=== PATIENT | male | born 1950 | race Caucasian/White ===

== ENCOUNTER → 2019-07-26 10:13 | Outpatient (CLI) | payer MEDICARE, OTHER, SELFPAY ==
--- NOTE | 2019-07-26 17:01 | NEURO ---
NCS and/or EMG Patient Report HPI: Patient is a 69-year-old male who presented with numbness and tingling in the first 3 digits of the right hand for many years which is progressively getting worse. Patient has history of diabetes but denying any neck injuries or neck surgeries. Numbness and tingling bothers him more at night than during the daytime. Patient is [id number]. Physical Exam: Decreased sensation to light touch is noted in right hand fingers. Mild weakness noted in the right thenar muscles and opponens muscles. Findings: 1. There is prolongation of distal latency of the right median sensory nerve response. 2. There is prolongation of the distal latency of the right median motor nerve response with severely reduced CMAP amplitudes of right median motor nerve response as well as decreased nerve conduction velocity of the right median motor nerve. 3. Normal needle examination of bilateral upper except decreased recruitment noted in right abductor pollicis brevis and first dorsal interossei muscles. Impression: 1. Findings are consistent with severe right median mononeuropathy at wrist due to carpal tunnel syndrome. 2. No electrodiagnostic evidence of right ulnar peripheral neuropathy. Recommendation: 1. Patient is recommended to wear both hand an elbow splints as much as possible. 2. Patient recommended to avoid repeated hand movements, heavy lifting or pushing pulling from right hand. 3. Patient recommended to have surgical release of right carpal tunnel syndrome if symptoms does not improve
== END ==
PROVIDERS: Family Provider Family Medicine; PCP Family Medicine; Referring Provider Family Medicine; Visit Provider Family Medicine
DX: G56.01 Carpal tunnel syndrome, right upper limb (principal); M79.601 Pain in right arm
CPT/HCPCS: 95886; 95908

== ENCOUNTER 2022-02-22 08:59 | Emergency (ER) | payer MEDICARE, OTHER, SELFPAY ==
[2022-02-22] VITALS (7 sets, daily range): BP systolic 130–168; BP diastolic 72–88; PULSE 51–68; RESP 12–19; TEMP 36.8; O2SAT 94–98; BMI 32.1
--- NOTE | 2022-02-22 09:09 | EKG12_ITS ---
Test Reason : CP Blood Pressure : / mmHG Vent. Rate : 062 BPM Atrial Rate : 062 BPM P-R Int : 114 ms QRS Dur : 076 ms QT Int : 416 ms P-R-T Axes : -24 -18 -08 degrees QTc Int : 422 ms Normal sinus rhythm Low voltage QRS Inferior infarct , age undetermined Poor R wave progression Abnormal ECG Confirmed by DARRIAN HOLLOWAY, ZACH ([id number]), editor farm journal DWAYNE PEÑA ([id number]) on 02/24/2022 8:53:56 AM Referred By: CAMACHO Confirmed By:ZACH COLMENARES MD
--- NOTE | 2022-02-22 09:09 | RAD_ITS ---
STUDY: X-RAY CHEST REASON FOR EXAM: Male, 71 years old. chest pain TECHNIQUE: Single AP portable view of the chest. COMPARISON: None. FINDINGS: The lungs are clear and expanded. There is no demonstrated pleural abnormality. Normal size heart. Normal mediastinum and shira. Normal visualized pulmonary arteries. Normal visualized aortic arch and descending thoracic aorta. Normal visualized thoracic spine. Normal visualized ribs, clavicles, and shoulders. There is no demonstrated abnormality of the visualized soft tissue structures of the upper abdomen. RAD/Chest 1 View (Portable) IMPRESSION: Normal x-ray examination of the chest. Electronically Signed: Venancio Callahan MD at 10:17 EDT ,
--- NOTE | 2022-02-22 09:10 | EDS_ITS ---
HPI History of Present Illness Chief Complaint: Chest Pain Informant: patient Narrative Narrative: 71-year-old male presenting to the emergency department for the evaluation of chest pain. Patient states that symptoms began at 5:00 this morning when he woke. He describes it as a sharp stabbing pain in the center of his chest. He notes that he is nauseous and has been vomiting. He denies any shortness of breath. He does note diaphoresis. He states that last year he had a stress test prior to a back surgery. He states that this was normal. He notes a history of diabetes hypertension high cholesterol. He is a former smoker. [facility] Medical History (Updated 02/22/22 @ 13:[address] Hema Lamar DO) Diverticulitis Essential hypertension Gout Hypercholesterolemia Nephrolithiasis Type 2 diabetes mellitus Home Medications ondansetron 4 mg disintegrating tablet 4 mg PO Q6H PRN PRN Nausea #15 tabs 02/22/22 [Rx Last Taken Unknown] Allergy/AdvReac Type Severity Reaction Status Date / Time metronidazole [From Flagyl] AdvReac Vomiting Verified 02/22/22 09:00 sulfamethoxazole AdvReac Vomiting Verified 02/22/22 09:00 [From Bactrim] trimethoprim [From Bactrim] AdvReac Vomiting Verified 02/22/22 09:00 Surgical History (Updated 02/22/22 @ 09:[address] Hema Lamar DO) H/O ileostomy Social History (Updated 02/22/22 @ 09:[address] Hema Lamar DO) current gender identity: male Smoking Status: Former smoker substance use type: does not use ROS ROS ED Constitutional Constitutional ED: Denies chills or weight loss Eyes Eyes: Denies change in vision or diplopia ENT ENT ED: Denies ear pain, rhinorrhea or sore throat Cardiovascular Cardiovascular: Reports chest pain; Denies orthopnea, palpitations or racing heartbeat Respiratory/Chest Respiratory/Chest: Denies cough, dyspnea or orthopnea Gastrointestinal Gastrointestinal: Reports nausea and vomiting; Denies abdominal pain or diarrhea Genitourinary Genitourinary ED: Denies dysuria, hematuria or urinary frequency Musculoskeletal Musculoskeletal: Denies arthralgias or myalgias Integumentary Denies abscess or rash Neurologic Neurologic: Denies headache(s) or weakness Psychiatric Psychiatric: Denies anxiety, depression, suicidal ideation or suicidal thoughts Endocrine Endocrinology: Denies polydipsia, polyphagia or polyuria Allergic/Immunologic Allergic/Immunologic ED: Denies mouth swelling, tongue swelling or urticaria EXAM Physical Exam Const Vital Signs: 02/22/22 09:01 02/22/22 09:17 02/22/22 09:38 Temperature 98.3 F Temperature Source Oral Pulse Rate 64 64 64 Respiratory Rate 18 Blood Pressure 168/87 H 155/88 H 130/76 H Blood Pressure Mean 114 Pulse Ox 98 Oxygen Delivery Method Room Air 02/22/22 10:51 02/22/22 12:18 Temperature Temperature Source Pulse Rate 52 L 63 Respiratory Rate 12 19 H Blood Pressure 137/72 H 155/77 H Blood Pressure Mean 93 103 Pulse Ox 94 94 Oxygen Delivery Method Room Air Room Air Heart Score History: Moderately Suspicious ECG: Normal Age: >/= 65 years Risk Factors: >/= 3 Risk Factors or History of CAD Score: 5 MDM MDM MDM Narrative Medical decision making narrative: CBC normal. D-dimer age corrected is normal range. Initial troponin 81 with the delta troponin at 68. liver lipase within normal limits. My interpretation of the chest x-ray is no acute process. Patient received nitroglycerin which did not change his symptoms. He received Zofran and then morphine. He continued to have pain and vomiting so therefore Zofran and more morphine were given. CT of the abdomen pelvis was obtained which is negative for acute. Patient is actually resting more comfortably now. He is remained in a sinus rhythm. I will write for some Zofran at home return if worsening or concerns. If he continues to have symptoms 24 hours she should seek a repeat examination Lab Data Attestation: I reviewed the patient's lab results. Labs: Laboratory Results - last 24 hr 02/22/22 02/22/22 02/22/22 09:15 09:15 09:15 WBC 9.5 RBC 5.06 Hgb 15.3 Hct 46.0 MCV 90.9 MCH 30.2 MCHC 33.3 RDW Std Deviation 46.4 H RDW Coeff of Manuel 14.1 Plt Count 199 MPV 8.6 Immature Gran % (Auto) 0.500 Neut % (Auto) 75.4 H Lymph % (Auto) 15.8 L Mckenzie % (Auto) 6.0 Eos % (Auto) 1.9 Baso % (Auto) 0.4 Absolute Neuts (auto) 7.2 Absolute Lymphs (auto) 1.51 Nucleated RBC % 0 D-Dimer Quant (PE/DVT) 0.64 H* Sodium 139 Potassium 4.2 Chloride 107 Carbon Dioxide 26.0 Anion Gap 6 BUN 24 H Creatinine 1.60 H Estim Creat Clear Calc 39.78 Est GFR (MDRD) Af Amer 55 L Est GFR (MDRD) Non-Af 45 L BUN/Creatinine Ratio 15.0 Glucose 156 H Calcium 9.8 Total Bilirubin Direct Bilirubin AST ALT Alkaline Phosphatase Troponin I High Sens 81 H Total Protein Albumin Globulin Lipase 02/22/22 02/22/22 02/22/22 09:15 09:15 11:15 WBC RBC Hgb Hct MCV MCH MCHC RDW Std Deviation RDW Coeff of Manuel Plt Count MPV Immature Gran % (Auto) Neut % (Auto) Lymph % (Auto) Mckenzie % (Auto) Eos % (Auto) Baso % (Auto) Absolute Neuts (auto) Absolute Lymphs (auto) Nucleated RBC % D-Dimer Quant (PE/DVT) Sodium Potassium Chloride Carbon Dioxide Anion Gap BUN Creatinine Estim Creat Clear Calc Est GFR (MDRD) Af Amer Est GFR (MDRD) Non-Af BUN/Creatinine Ratio Glucose Calcium Total Bilirubin 0.40 Direct Bilirubin 0.13 AST 13 L ALT 21 Alkaline Phosphatase 161 H Troponin I High Sens 68 Total Protein 7.3 Albumin 4.0 Globulin 3.3 Lipase 122 Radiography Diagnostic Testing: Clinical Impression(s) from Imaging Studies Chest X-Ray 02/22/22 09:09 IMPRESSION: Normal x-ray examination of the chest. Electronically Signed: Venancio Callahan MD at 10:17 EDT , Abdomen/Pelvis CT 02/22/22 11:51 IMPRESSION: No acute abnormality. Electronically Signed: Venancio Callahan MD at 13:16 EDT Reading Location ID and State: [id number] / [place] Tel , Service support , EKG Initial EKG: Attestation: I personally reviewed and interpreted this EKG as follows: Comments: Normal sinus rhythm with a ventricular rate of 62 bpm. Discharge Plan Triage Chief Complaint: Chest Pain ED Provider: Hema Lamar Dx/Rx/DC Orders Clinical Impression: Chest pain, Vomiting Instructions: Self-Care for Vomiting and Diarrhea, ED Chest Pain, Uncertain Cause Prescriptions: New ondansetron [ondansetron] 4 mg tablet,disintegrating 4 mg PO Q6H PRN PRN (Reason: Nausea) Qty: 15 0RF Primary Care Provider: Peyman Dial Referrals: Peyman Dial MD [Primary Care Provider] - 1-2 Days if not improving Disposition Disposition: Home, Self Care
[2022-02-22] MEDS: Nitroglycerin SL (ED/IMG/CATH) 0.4 MG TABLET SL ×2 (09:17→09:38)
[2022-02-22] MEDS: Ondansetron 4 MG/2 ML Vial IV ×2 (09:18→10:14)
[2022-02-22 09:31] LABS: Absolute Lymphocyte Count 1.51 X10^3/uL (0.83-4.51); Absolute Neutrophil Count 7.2 X10^3/uL (2.0-7.7); Basophil# 0.04 X10^3/uL; Basophil% 0.4 % (0-1); Eosinophil# 0.18 X10^3/uL; Eosinophils% 1.9 % (0-5); Hemoglobin 15.3 g/dL (13.0-16.5); Lymphocyte # 1.51 X10^3/ul (0.83-4.51); Lymphocyte % 15.8 % (19-41); Mean Corp Hgb Conc 33.3 g/dL (32-36); Mean Corpuscular Hgb 30.2 pg (27.0-32.0); Mean Corpuscular Volume 90.9 fL (80-94); Mean Platelet Vol. 8.6 fl (6.2-12.0); Monocyte# 0.57 X10^3/uL; NRBC Flagged by Analyzer 0 % (0-5); Neutrophil # 7.19 X10^3/uL (2.7-7.7); Neutrophil % 75.4 % (47-70); Platelet Count 199 K/mm3 (150-450); RBC Distribution Width CV 14.1 % (11.6-14.6); RBC Distribution Width SD 46.4 fl (35.1-43.9); Red Blood Count 5.06 M/mm3 (4.6-6.2); White Blood Count 9.5 K/mm3 (4.4-11.0)
[2022-02-22 09:46] LABS: D-Dimer Quantitative (DVT/PE) 0.64 FEU/ug/m (0.27-0.49)
[2022-02-22 09:49] LABS: Anion Gap 6 (5-15); BUN 24 mg/dL (7-18); Calcium,Total 9.8 mg/dL (8.5-10.1); Chloride 107 mmol/L (98-107); EST Glomerular Filtration Rate 45 mL/min (>60); Est Glom Filt Rate - Afr Amer 55 mL/min (>60); Estimated Creatinine Clearance 39.78 ml/min; Glucose 156 mg/dL (74-106); Potassium 4.2 mmol/L (3.5-5.1); Sodium Level 139 mmol/L (136-145); Troponin-I HS (w/2H Reflex) 81 pg/mL (3.0-78.0)
[2022-02-22] MEDS: Morphine 4 MG/ML Syringe IV ×2 (10:14→12:00)
[2022-02-22 10:29] LABS: Lipase 122 U/L (73-393)
[2022-02-22 10:30] LABS: AST(SGOT) 13 U/L (15-37); Alanine Aminotransfer ALT/SGPT 21 U/L (16-61); Alkaline Phosphatase 161 U/L (45-117); Bilirubin, Direct 0.13 mg/dL (0.00-0.30); Globulin 3.3 g/dL (2.2-4.2); Protein, Total 7.3 g/dL (6.4-8.2)
[2022-02-22 11:28] LABS: Reflex Troponin-HS? (from REC) Y
[2022-02-22 11:50] LABS: Troponin-I HS 68 pg/mL (3.0-78.0)
--- NOTE | 2022-02-22 11:51 | CT_ITS ---
STUDY: CT ABDOMEN AND PELVIS WITH CONTRAST REASON FOR EXAM: Male, 71 years old. abdominal pain vomiting RADIATION DOSAGE (If Supplied By Facility): CTDIvol = ( 21.36 ) mGy, DLP = ( 1185.20 ) mGycm TECHNIQUE: Transaxial images were obtained from the dome of the diaphragm to the symphysis pubis without oral contrast. IV 100mL Isovue-300 was administered. Sagittal and coronal images were reconstructed. Individualized dose optimization techniques were used for this CT. COMPARISON: None. FINDINGS: The visualized lung bases are unremarkable. The visualized portions of the heart are within normal limits. Normal liver. Normal gallbladder and extrahepatic biliary system. Normal spleen. Normal pancreas. Normal bilateral adrenal glands. Normal right kidney. Normal left kidney. Normal visualized stomach. Diverticulum of the second portion of duodenum. There are multiple colonic diverticula consistent with diverticulosis. Suture line in the mid sigmoid colon. There is non-visualization of the appendix. Normal abdominal aorta. Normal inferior vena cava. Normal retroperitoneum. Normal urinary bladder. Normal abdominal wall. Normal osseous structures. CT/Abdomen/Pelvis W IV Cont ONLY IMPRESSION: No acute abnormality. Electronically Signed: Venancio aCllahan MD at 13:16 EDT ,
== END 2022-02-22 13:52 | disposition home or self-care (01) ==
PROVIDERS: Emergency Provider Emergency Medicine; PCP Family Medicine; Visit Provider Emergency Medicine
DX: R07.9 Chest pain, unspecified (principal); E11.9 Type 2 diabetes mellitus without complications; R11.2 Nausea with vomiting, unspecified; Z87.891 Personal history of nicotine dependence; E78.00 Pure hypercholesterolemia, unspecified; I10 Essential (primary) hypertension; M10.9 Gout, unspecified; Z87.442 Personal history of urinary calculi
CPT/HCPCS: 71045; 74177; 80048; 80076; 83690; 84484; 85025; 85379; 93005; 96374; 96375; 96376; 99285; Q9967; A4216; J2405

== ENCOUNTER 2023-04-07 10:01 | Emergency (ER) | payer MEDICARE, OTHER, SELFPAY ==
[2023-04-07 10:02] VITALS: BP 123/66; PULSE 85; RESP 14; TEMP 36.4; O2SAT 98; BMI 31.6
--- NOTE | 2023-04-07 10:21 | RAD_ITS ---
STUDY: X-RAY CHEST REASON FOR EXAM: Male, 72 years old. Cough and shortness of breath. Left-sided rib pain for one week. TECHNIQUE: PA and lateral views of the chest. COMPARISON: Comparison is made with prior study dated February 22, 2022. FINDINGS: Small left pleural effusion with left basilar atelectasis and/or infiltrate. Linear density in the left midlung suggestive of linear atelectasis. There is no demonstrated pleural abnormality. Normal size heart. Normal mediastinum and shira. Normal visualized pulmonary arteries. There is atherosclerotic tortuosity of the aortic arch and descending thoracic aorta. There are diffuse degenerative changes of the visualized thoracic spine. Normal visualized ribs, clavicles, and shoulders. There is no demonstrated abnormality of the visualized soft tissue structures of the upper abdomen. RAD/Chest PA and Lateral IMPRESSION: Small left pleural effusion with left basilar infiltration and/or atelectasis. Increased linear density in the mid left lung. Electronically Signed: Estuardo Morgan MD at 11:13 EDT ,
--- NOTE | 2023-04-07 10:22 | ED.VIS.CHEST ---
HPI History of Present Illness Chief Complaint: Chest Other Informant: patient and spouse/S.O. Narrative Narrative: 72-year-old presenting to the emergency department with chief complaint of left rib pain. Patient states that on Monday he began to have a dull ache in the left rib. He associates this with a cough that is productive of sputum particularly at night. He states that he had colonoscopy on Monday without any difficulty. This morning he coughed and after coughing for a bit he spit up some bright red blood with the phlegm. He denies any recent travel or history of pulmonary embolism. He is not on any blood thinners. He notes that he does feel short of breath particularly with exertion. He denies fevers. He does note some sinus drainage. No known trauma. No rashes. No known malignancy. PFSH PFSH Medical History Diverticulitis Essential hypertension Gout Hypercholesterolemia Nephrolithiasis Type 2 diabetes mellitus Home Medications ondansetron 4 mg disintegrating tablet 4 mg PO Q6H PRN PRN Nausea #15 tabs 02/22/22 [Rx Last Taken Unknown] Allergy/AdvReac Type Severity Reaction Status Date / Time metronidazole [From Flagyl] AdvReac Vomiting Verified 04/07/23 10:02 sulfamethoxazole AdvReac Vomiting Verified 04/07/23 10:02 [From Bactrim] trimethoprim [From Bactrim] AdvReac Vomiting Verified 04/07/23 10:02 Surgical History H/O ileostomy Social History Smoking Status: Former smoker substance use type: does not use ROS ROS ED Constitutional Constitutional ED: Denies chills or weight loss Eyes Eyes: Denies change in vision or diplopia ENT ENT ED: Denies ear pain, rhinorrhea or sore throat Cardiovascular Cardiovascular: Reports chest pain; Denies orthopnea, palpitations or racing heartbeat Respiratory/Chest Respiratory/Chest: Reports cough, dyspnea, sputum and other Details: See HPI ; Denies orthopnea Gastrointestinal Gastrointestinal: Denies abdominal pain, constipation, diarrhea, nausea or vomiting Genitourinary Genitourinary ED: Denies dysuria, hematuria or urinary frequency Musculoskeletal Musculoskeletal: Denies arthralgias or myalgias Integumentary Denies abscess or rash Neurologic Neurologic: Denies headache(s) or weakness Psychiatric Psychiatric: Denies anxiety, depression, suicidal ideation or suicidal thoughts Endocrine Endocrinology: Denies polydipsia, polyphagia or polyuria Allergic/Immunologic Allergic/Immunologic ED: Denies mouth swelling, tongue swelling or urticaria EXAM Physical Exam Const Vital Signs: 04/07/23 10:02 04/07/23 10:19 Temperature 97.6 F L Temperature Source Temporal Pulse Rate 85 Respiratory Rate 14 Respiratory Effort Normal Blood Pressure 123/66 H Blood Pressure Mean 85 Pulse Ox 98 Oxygen Delivery Method Room Air Positive well nourished and well developed General Appearance ED: well developed HEENT Reports normocephalic, head/scalp atraumatic and moist mucous membranes Eyes PERRL and EOMs intact bilaterally Neck no lymphadenopathy, supple and no JVD Chest Wall inspection of chest normal and palpation of chest normal Chest Narrative: No visible rashes of the chest wall. No tenderness to palpation. Resp normal respiratory effort and clear to auscultation bilaterally Cardio regular rate, regular rhythm and no murmurs GI normal to inspection, nondistended, normoactive bowel sounds and non-tender Palpation: soft Back/Spine no CVA tenderness and normal ROM Extremity normal to inspection General Extremety ED: Yes edema General Extremity: edema bilateral (1+) Neuro oriented x3 and CN's II-XII intact bilaterally Sensorium / Orientation: alert Motor Exam: strength 5/5 throughout Psych mental status grossly normal Mood & Affect: Negative for depressed or tearful Skin no rashes or lesions noted and no wounds MDM MDM MDM Narrative Medical decision making narrative: Basic blood work was obtained. White count 8.5 hemoglobin 13.1. Patient's creatinine is 2.49. He does have a history of chronic kidney disease and sees nephrology. Troponin is 81 which it appears that he has had elevated troponins in the past. Beta natruretic peptide is 121 which is not significantly elevated in light of his chronic kidney disease. Interpretation of his chest x-ray is left pleural effusion with atelectatic changes in the left lower lung. I do not feel strongly that the patient has pneumonia. He has a normal white count and no fever. Clinically he appears well not requiring any oxygenation and breathing normally. He does have lower extremity edema and is supposed to be wearing compression stockings but is not wearing them. I spoke with his PCP who notes that he recently saw nephrology and had his 20 mg of Lasix decreased to every other day. The patient does confirm this. He is supposed to take his Lasix today but did not do so as he was coming to the hospital. At this point I do not think that the patient needs to be admitted to the hospital. He underwent a normal pharmacologic stress test approximately 2 years ago. I do not think this represents ACS. We are can have him take his Lasix daily but have him have a early follow-up next week to see where he is at. In the interim he was given return instructions such as increased blood in the sputum or worsening breathing. Him and his note understanding of the plan. History & Record Review Discussion w/independent historian: Patient, Family and Other (PCP) Lab Data Attestation: I reviewed the patient's lab results. Labs: Laboratory Results - last 24 hr 04/07/23 04/07/23 10:30 11:09 WBC 8.5 RBC 4.48 L Hgb 13.1 Hct 39.7 L MCV 88.6 MCH 29.2 MCHC 33.0 RDW Std Deviation 43.4 RDW Coeff of Manuel 13.3 Plt Count 232 MPV 9.0 Immature Gran % (Auto) 1.200 H Neut % (Auto) 71.2 H Lymph % (Auto) 16.9 L [place] % (Auto) 7.5 Eos % (Auto) 2.5 Baso % (Auto) 0.7 Absolute Neuts (auto) 6.1 Absolute Lymphs (auto) 1.44 Nucleated RBC % 0 PT 14.6 INR 1.1 APTT 22.3 L Sodium 138 Potassium 3.6 Chloride 109 H Carbon Dioxide 22.0 Anion Gap 7 BUN 28 H Creatinine 2.49 H Estim Creat Clear Calc 26.03 Est GFR (MDRD) Af Amer 33 L Est GFR (MDRD) Non-Af 27 L BUN/Creatinine Ratio 11.2 Glucose 213 H Calcium 9.1 Troponin I High Sens 81 H B-Natriuretic Peptide 121.7 H Radiography Diagnostic Testing: Clinical Impression(s) from Imaging Studies Chest X-Ray 04/07/23 10:21 IMPRESSION: Small left pleural effusion with left basilar infiltration and/or atelectasis. Increased linear density in the mid left lung. Electronically Signed: Estuardo Morgan MD at 11:13 EDT , EKG Initial EKG: Attestation: I personally reviewed and interpreted this EKG as follows: Interpretation: Sinus Rhythm Comments: Normal sinus rhythm ventricular rate of 79 bpm. No acute injury pattern noted Management Discussion w/another healthcare provider: PCP Discharge Plan Triage Chief Complaint: Chest Other Other Complaint: Shortness of Breath ED Provider: Hema Lamar Dx/Rx/DC Orders Clinical Impression: Cough with hemoptysis, CKD (chronic kidney disease), Pleural effusion, Pleurisy with effusion, Volume overload Instructions: ED Pleural Effusion, ED Pleurisy Prescriptions: No Action ondansetron [ondansetron] 4 mg tablet,disintegrating 4 mg PO Q6H PRN PRN (Reason: Nausea) Qty: 15 0RF Primary Care Provider: Peyman Dial Referrals: Peyman Dial MD [Primary Care Provider] - As soon as possible (I would recommend calling today to obtain early follow-up next week. In the interim if you are feeling worse or if any concerning changes in your health please return to emergency) Activity Restrictions/Additional Instructions: Today you are diagnosed with a pleural effusion which is most likely the source of your cough and your rib pain. The etiology of the pleural effusion can be many different things but at this point it looks like you could have volume overload from decreasing your Lasix. Please wear your compression stockings and start taking your Lasix every day. I spoke with your primary care doctor today and asked that you call them to arrange early follow-up next week. Please return if any concerns. Disposition Disposition: Home, Self Care
[2023-04-07 10:47] LABS: Absolute Lymphocyte Count 1.44 X10^3/uL (0.83-4.51); Absolute Neutrophil Count 6.1 X10^3/uL (2.0-7.7); Basophil# 0.06 X10^3/uL; Basophil% 0.7 % (0-1); Eosinophil# 0.21 X10^3/uL; Eosinophils% 2.5 % (0-5); Hematocrit 39.7 % (40-54); Hemoglobin 13.1 g/dL (13.0-16.5); Lymphocyte # 1.44 X10^3/ul (0.83-4.51); Lymphocyte % 16.9 % (19-41); Mean Corpuscular Hgb 29.2 pg (27.0-32.0); Mean Corpuscular Volume 88.6 fL (80-94); Monocyte# 0.64 X10^3/uL; Monocyte% 7.5 % (0-10); NRBC Flagged by Analyzer 0 % (0-5); Neutrophil # 6.05 X10^3/uL (2.7-7.7); Neutrophil % 71.2 % (47-70); Platelet Count 232 K/mm3 (150-450); RBC Distribution Width CV 13.3 % (11.6-14.6); RBC Distribution Width SD 43.4 fl (35.1-43.9); Red Blood Count 4.48 M/mm3 (4.6-6.2); White Blood Count 8.5 K/mm3 (4.4-11.0)
--- NOTE | 2023-04-07 10:47 | EKG12_ITS ---
Test Reason : sob Blood Pressure : / mmHG Vent. Rate : 079 BPM Atrial Rate : 079 BPM P-R Int : 154 ms QRS Dur : 082 ms QT Int : 396 ms P-R-T Axes : 016 -14 -21 degrees QTc Int : 454 ms Normal sinus rhythm Inferior infarct (cited on or before 22-FEB-2022) Possible Anterior infarct , age undetermined Abnormal ECG Confirmed by BHAVANI CARMONA ([id number]), greeting card editor PATRICIA MIRELES ([id number]) on 04/10/2023 2:12:19 PM Referred By: Confirmed By:BHAVANI CARMONA
[2023-04-07 10:52] LABS: Anion Gap 7 (5-15); BUN 28 mg/dL (7-18); BUN/Creat Ratio 11.2 RATIO (10-20); Calcium,Total 9.1 mg/dL (8.5-10.1); Chloride 109 mmol/L (98-107); Creatinine, Serum 2.49 mg/dL (0.70-1.30); EST Glomerular Filtration Rate 27 mL/min (>60); Est Glom Filt Rate - Afr Amer 33 mL/min (>60); Estimated Creatinine Clearance 26.03 ml/min; Glucose 213 mg/dL (74-106); Potassium 3.6 mmol/L (3.5-5.1); Sodium Level 138 mmol/L (136-145)
[2023-04-07 11:27] LABS: International Normalized Ratio 1.1; Prothrombin Time (Protime)PT. 14.6 SECONDS (11.7-14.9)
[2023-04-07 11:28] LABS: Troponin-I HS 81 pg/mL (3.0-78.0)
[2023-04-07 11:29] LABS: BNP,B-Type NATRIURETIC PEPTIDE 121.7 pg/mL (0-100)
[2023-04-07 12:01] LABS: Partial Thromboplast Time 22.3 Seconds (24.1-36.2)
[2023-04-07] MEDS: Furosemide 40 MG/4 ML Vial IV (13:03)
== END 2023-04-07 13:09 | disposition home or self-care (01) ==
PROVIDERS: Emergency Provider Emergency Medicine; PCP Family Medicine; Visit Provider Emergency Medicine
DX: J90 Pleural effusion, not elsewhere classified (principal); E11.22 Type 2 diabetes mellitus with diabetic chronic kidney disease; N18.9 Chronic kidney disease, unspecified; Z87.891 Personal history of nicotine dependence; R04.2 Hemoptysis; E78.00 Pure hypercholesterolemia, unspecified; I12.9 Hypertensive chronic kidney disease with stage 1 through stage 4 chronic kidney disease, or unspecified chronic kidney disease
CPT/HCPCS: 71046; 80048; 83880; 84484; 85025; 85610; 85730; 93005; 96374; 99283; A4216; J1940

== ENCOUNTER 2023-04-10 16:18 | Observation (INO) | payer MEDICARE, OTHER, SELFPAY ==
[2023-04-10] VITALS (26 sets, daily range): BP systolic 134–170; BP diastolic 74–89; PULSE 66–87; RESP 14–25; TEMP 36.4–37.2; O2SAT 95–98; BMI 31.0
--- NOTE | 2023-04-10 16:53 | EX.ED.DYSGE1 ---
HPI History of Present Illness Chief Complaint: Abn Labs [facility] Medical History Diverticulitis Essential hypertension Gout Hypercholesterolemia Nephrolithiasis Type 2 diabetes mellitus Home Medications allopurinol 100 mg tablet 100 mg PO DAILY 04/10/23 [History Last Taken Unknown] felodipine 10 mg tablet,extended release 24 hr 10 mg PO DAILY 04/10/23 [History Last Taken Unknown] fluticasone furoate 50 mcg/actuation blister powder for inhalation inhalation 04/10/23 [History Last Taken Unknown] furosemide 20 mg tablet 20 mg PO .EVERY OTHER DAY 04/10/23 [History Last Taken Unknown] multivitamin (Daily Multi-Vitamin tablet) 1 tab PO DAILY 04/10/23 [History Last Taken Unknown] tamsulosin 0.4 mg capsule 0.4 mg PO DAILY 04/10/23 [History Last Taken Unknown] valsartan 80 mg tablet 80 mg PO DAILY 04/10/23 [History Last Taken Unknown] Allergy/AdvReac Type Severity Reaction Status Date / Time aspirin AdvReac Vomiting Verified 04/10/23 16:20 metronidazole [From Flagyl] AdvReac Vomiting Verified 04/10/23 16:20 sulfamethoxazole AdvReac Vomiting Verified 04/10/23 16:20 [From Bactrim] trimethoprim [From Bactrim] AdvReac Vomiting Verified 04/10/23 16:20 Surgical History H/O ileostomy Social History Smoking Status: Former smoker substance use type: does not use EXAM Physical Exam Const Vital Signs: 04/10/23 16:20 04/10/23 16:47 04/10/23 18:18 Temperature 97.6 F L 98.1 F Temperature Source Temporal Temporal Pulse Rate 87 69 Respiratory Rate 18 25 H Respiratory Effort Normal Respiratory Pattern Normal Blood Pressure 147/81 H 138/74 H Blood Pressure Mean 103 95 Pulse Ox 98 97 Oxygen Delivery Method Room Air Room Air 04/10/23 19:23 04/10/23 19:30 04/10/23 19:40 Temperature Temperature Source Pulse Rate 67 68 68 Respiratory Rate 25 H 24 H 25 H Respiratory Effort Respiratory Pattern Blood Pressure 141/79 H Blood Pressure Mean 98 Pulse Ox 97 96 97 Oxygen Delivery Method 04/10/23 19:45 04/10/23 19:50 04/10/23 20:00 Temperature Temperature Source Pulse Rate 68 71 73 Respiratory Rate 20 H 21 H 20 H Respiratory Effort Respiratory Pattern Blood Pressure 134/82 H 135/79 H Blood Pressure Mean 98 96 Pulse Ox 95 95 96 Oxygen Delivery Method 04/10/23 20:10 04/10/23 20:15 04/10/23 20:20 Temperature Temperature Source Pulse Rate 70 66 68 Respiratory Rate 20 H 25 H 24 H Respiratory Effort Respiratory Pattern Blood Pressure 142/83 H Blood Pressure Mean 101 Pulse Ox 97 95 96 Oxygen Delivery Method Room Air 04/10/23 20:30 04/10/23 20:40 04/10/23 20:45 Temperature Temperature Source Pulse Rate 72 71 Respiratory Rate 18 23 H Respiratory Effort Respiratory Pattern Blood Pressure 145/89 H 170/79 H Blood Pressure Mean 105 103 Pulse Ox 97 96 Oxygen Delivery Method 04/10/23 20:50 04/10/23 21:00 04/10/23 21:10 Temperature Temperature Source Pulse Rate 71 70 72 Respiratory Rate 18 14 23 H Respiratory Effort Respiratory Pattern Blood Pressure 141/80 H Blood Pressure Mean 97 Pulse Ox 98 98 Oxygen Delivery Method 04/10/23 21:15 04/10/23 21:20 04/10/23 21:30 Temperature Temperature Source Pulse Rate 70 71 Respiratory Rate 22 H 16 Respiratory Effort Respiratory Pattern Blood Pressure 141/82 H 143/87 H Blood Pressure Mean 99 104 Pulse Ox 98 98 Oxygen Delivery Method 04/10/23 21:30 04/10/23 21:42 04/10/23 21:45 Temperature Temperature Source Pulse Rate Respiratory Rate 18 21 H Respiratory Effort Respiratory Pattern Blood Pressure 143/87 H 141/81 H Blood Pressure Mean 104 98 Pulse Ox 96 98 98 Oxygen Delivery Method 04/10/23 21:50 04/10/23 22:00 Temperature Temperature Source Pulse Rate 86 Respiratory Rate 16 Respiratory Effort Respiratory Pattern Blood Pressure 140/79 H Blood Pressure Mean 96 Pulse Ox 96 97 Oxygen Delivery Method Room Air MDM MDM MDM Narrative Medical decision making narrative: HISTORY OF PRESENT ILLNESS: 72-year-old male here with hemoptysis and occasional shortness of breath told to come in secondary to elevated D-dimer by his primary doctor. He does note shortness of breath, dyspnea exertion and hemoptysis over the last week. Notes recent colonoscopy. Denies family or personal history of blood clots. Denies any chemotherapy treatment. Denies taking estrogen. He denies any unilateral leg swelling. Denies any chest pain at this time. REVIEW OF SYSTEMS: Pertinent positives: Shortness of breath Pertinent negatives: Chest pain, unilateral leg swelling. PHYSICAL EXAM: Nursing triage notes reviewed, Vital signs reviewed Constitutional: please see mdm HENT: MMM Eyes: Pupils equal round and reactive to light, Extraocular muscles intact Neck: No stridor, no JVD, full neck ROM Lungs: Clear to auscultation, No wheezing or rales. No increased work of breathing, no conversational dyspnea, no accessory muscle use, no nasal flaring. No respiratory distress noted Heart: Regular rate and rhythm, No murmurs, No rubs and No gallops, 2+ distal pulses (radial, femoral, posterior tibial) in all extremities Abdomen: Soft, there is no tenderness, rigidity, rebound or guarding, no obvious peritoneal signs, no palpable pulsatile abdominal masses, no auscultated abdominal bruit : No CVAT Extremities: No edema Neuro: No focal neurological deficits, cranial nerves II through XII intact, 5/5 strength in all extremities. Intact sensation to light touch in all extremities, 2+ reflexes bilateral patella tendons. Normal gait. No ataxia. Skin: No rash or lesions noted MEDICAL DECISION MAKING: Chief Complaint: Shortness of breath External records reviewed: Last ED evaluation on 04/07/2023 for left rib pain. Notes coughing up bright red blood. Prior imaging studies reviewed, chest x-ray from 04/07/2023 shows small left pleural effusion, left basilar infiltration Factors affecting care: Type 2 diabetes hypertension, gout, hyperlipidemia, nephrolithiasis Social determinants of health: none History obtained from others: The patient's Consults: none ALL IMAGES (IF OBTAINED) HAVE BEEN PERSONALLY REVIEWED AND INTERPRETED BY MYSELF. EKG with normal sinus rhythm, normal axis, normal intervals, no STEMI [facility] Narrative: Patient was hemodynamically stable, afebrile, nontoxic-appearing. Exam with no focal cardiopulmonary abnormalities. I considered the following differential diagnosis: Pneumonia, lung mass, PE, bronchitis, vascular malformation of the lung I obtained an EKG, troponin rule out myocardial ischemia. EKG showed normal sinus rhythm, left axis deviation, no STEMI. Troponin was negative. The patient's BNP was only mildly elevated this was not consistent with CHF. Chest x-ray showed no evidence of pneumonia or pulmonary edema. Given patient's elevated D-dimer and hemoptysis I was concerned about PE. I did offer the patient admission to undergo VQ scan also offered him a CTA of the chest. The data regarding contrast-induced nephropathy is not definitive. There is even some literature to suggest contrast-induced nephropathy is not a significant clinical entity. I discussed this and agreed with the patient. I offered a CTA to definitively rule out PE. I obtained labs which showed evidence of CKD with a GFR of 29. Patient was still comfortable getting a CT scan new the risk of contrast-induced nephropathy and potentially worsening renal function. He was hydrated with IV fluids prior to and after image. CTA of the chest showed evidence of pulmonary embolism. Per radiology report there is also evidence of right heart strain. Patient's EKG, troponin and BNP were not consistent with severe right heart strain. He does not hypotensive or displaying any hemodynamic compromise. Started heparin. Appropriate for inpatient admission here at . Did discuss with inpatient Dr. Madden. Dr. Madden excepted patient's case. The patient and/or family, caregivers express understanding. The patient and/or family, caregivers agrees with the plan. Shared decision making: I will have a discussion with the patient and or visitors regarding risk/benefits of further testing or admission. They will be made aware of of the risk/benefits inherent in this decision they will be given the opportunity to voice understanding. Total critical care time today provided was at least 0 minutes. This excludes separately billable procedures. Critical care time (if documented) is secondary to the patient having high probability of clinically significant/life threatening deterioration in the patient's condition which required my urgent intervention. Lab Data Attestation: I reviewed the patient's lab results. Lab results narrative: CBC with no leukocytosis, mild anemia, no thrombocytopenia BMP with acute kidney injury, BMP without significant electrolyte abnormalities. Troponin is negative, no evidence of myocardial ischemia BNP mildly elevated consistent with increased myocardial stretch COVID-negative Labs: Laboratory Results - last 24 hr 04/10/23 17:12 WBC 8.5 RBC 4.40 L Hgb 12.8 L Hct 39.0 L MCV 88.6 MCH 29.1 MCHC 32.8 RDW Std Deviation 42.7 RDW Coeff of Manuel 13.2 Plt Count 273 MPV 9.1 Immature Gran % (Auto) 1.200 H Neut % (Auto) 68.9 Lymph % (Auto) 16.4 L [place]born % (Auto) 7.9 Eos % (Auto) 4.9 Baso % (Auto) 0.7 Absolute Neuts (auto) 5.9 Absolute Lymphs (auto) 1.40 Nucleated RBC % 0 Sodium 140 Potassium 3.9 Chloride 109 H Carbon Dioxide 27.0 Anion Gap 4 L BUN 30 H Creatinine 2.36 H Estim Creat Clear Calc 27.46 Est GFR (MDRD) Af Amer 35 L Est GFR (MDRD) Non-Af 29 L BUN/Creatinine Ratio 12.7 Glucose 138 H Calcium 9.1 Troponin I High Sens 63 B-Natriuretic Peptide 127.4 H Discharge Plan Dx/Rx/DC Orders Clinical Impression: Pulmonary embolism, Pleural effusion, left, Pulmonary infarct Disposition Disposition: Acute Care [facility]
--- NOTE | 2023-04-10 16:57 | EKG12_ITS ---
Test Reason : Blood Pressure : / mmHG Vent. Rate : 077 BPM Atrial Rate : 077 BPM P-R Int : 160 ms QRS Dur : 068 ms QT Int : 410 ms P-R-T Axes : 034 -02 013 degrees QTc Int : 463 ms Normal sinus rhythm Cannot rule out Inferior infarct (cited on or before 22-FEB-2022) Abnormal ECG When compared with ECG of 07-APR-2023 10:55, No significant change was found Confirmed by MOISES HOLLOWAY, KAIDEN ([id number]), school photograph editor PATRICIA MIRELES ([id number]) on 06/07/2023 2:10:06 PM Referred By: Confirmed By:KAIDEN DE LEON MD
[2023-04-10 17:27] LABS: Absolute Neutrophil Count 5.9 X10^3/uL (2.0-7.7); Basophil# 0.06 X10^3/uL; Basophil% 0.7 % (0-1); Eosinophil# 0.42 X10^3/uL; Eosinophils% 4.9 % (0-5); Hemoglobin 12.8 g/dL (13.0-16.5); Lymphocyte % 16.4 % (19-41); Mean Corp Hgb Conc 32.8 g/dL (32-36); Mean Corpuscular Hgb 29.1 pg (27.0-32.0); Mean Corpuscular Volume 88.6 fL (80-94); Mean Platelet Vol. 9.1 fl (6.2-12.0); Monocyte# 0.67 X10^3/uL; Monocyte% 7.9 % (0-10); NRBC Flagged by Analyzer 0 % (0-5); Neutrophil # 5.88 X10^3/uL (2.7-7.7); Neutrophil % 68.9 % (47-70); Platelet Count 273 K/mm3 (150-450); RBC Distribution Width CV 13.2 % (11.6-14.6); RBC Distribution Width SD 42.7 fl (35.1-43.9); White Blood Count 8.5 K/mm3 (4.4-11.0)
[2023-04-10 17:47] LABS: Anion Gap 4 (5-15); BUN 30 mg/dL (7-18); BUN/Creat Ratio 12.7 RATIO (10-20); Calcium,Total 9.1 mg/dL (8.5-10.1); Chloride 109 mmol/L (98-107); Creatinine, Serum 2.36 mg/dL (0.70-1.30); EST Glomerular Filtration Rate 29 mL/min (>60); Est Glom Filt Rate - Afr Amer 35 mL/min (>60); Estimated Creatinine Clearance 27.46 ml/min; Glucose 138 mg/dL (74-106); Potassium 3.9 mmol/L (3.5-5.1); Sodium Level 140 mmol/L (136-145); Troponin-I HS 63 pg/mL (3.0-78.0)
[2023-04-10 20:13] LABS: BNP,B-Type NATRIURETIC PEPTIDE 127.4 pg/mL (0-100)
--- NOTE | 2023-04-10 20:37 | CT_ITS ---
STUDY: CTA CHEST REASON FOR EXAM: Male, 72 years old. SOB RADIATION DOSAGE (If Supplied By Facility): CTDIvol = ( 13.83 ) mGy, DLP = ( 483.26 ) mGycm TECHNIQUE: The examination was performed with the intravenous administration of IV 100mL Isovue-370. Post-processing of the angiographic images was performed, with multiplanar reformation and 3D reconstruction. Individualized dose optimization techniques were used for this CT. COMPARISON: None. FINDINGS: Adequate density of contrast in the pulmonary arteries and no significant motion; high-quality, diagnostic exam. There is a saddle embolus in the distal superior lobar artery right lung. Large embolism involving the left, proximal basilar part of inferior lobar artery, posterior and lateral basilar segments. There is increased right to left ventricular luminal diameter consistent with right heart strain. There is some mild contrast backflow entering the inferior vena cava. There is a wjuhj-[id number] left pleural effusion. Left lower lobe posterior segmental atelectasis with some decreased density likely representing pulmonary infarct. Normal size heart. No pericardial fluid. No mediastinal or hilar lymphadenopathy. Moderate coronary artery calcifications. 5 mm right middle lobe nodule, axial image 90. Calcific granuloma left upper lobe, axial image 214. Calcified granuloma superior segment right lower lobe, axial image 120. Lungs are otherwise clear. Thoracic aorta is normal in appearance. Note of left vertebral artery originating directly from the thoracic aorta. Otherwise normal three-vessel aortic arch. No mediastinal or hilar lymphadenopathy. Heart is normal size. No pericardial effusion. Inferior and posterior splenule''s. Upper abdomen included in [id number] is otherwise within normal limits. No fracture or focal osseous lesion. Large bridging osteophytes mid and distal thoracic spine. CT/CTA Chest W/WO Contrast IMPRESSION: Exam positive for pulmonary emboli right and left lung as above. Likely pulmonary infarct left lower lobe with associated left pleural effusion. Evidence of right heart strain. Moderate coronary artery calcifications. 5 mm noncalcified and calcified granulomas as above. No follow-up imaging indicated based on flexion Society guidelines. N.B. : The above Results were Read Back by Brendon Parisi DO to Stone Borja DO, and understanding confirmed on 04/10/2023 22:53:18 (ET). Electronically Signed: Brendon Parisi DO at 22:59 EDT ,
--- NOTE | 2023-04-10 23:00 | ECHOD_ITS ---
Reason For Study: PE w/RV STRAIN on CT. Procedure This was a 2D Doppler, Color Flow transthoracic echocardiogram. Exam performed portable in ED. Left Ventricle Severe concentric left ventricular hypertrophy. Normal LV size. The left ventricular ejection fraction is 65 %. Stage 3 diastolic dysfunction. Right Ventricle Normal RV size. Normal systolic function. Atria The left atrium is moderately enlarged. The right atrium is moderately enlarged. Mitral Valve The mitral valve is structurally normal. No prolapse or stenosis seen. Trivial mitral valve insufficiency. Tricuspid Valve Trivial tricuspid valve insufficiency. Unable to estimate RV systolic pressure due to insufficient tricuspid regurgitant envelope. Aortic Valve Trisinus/trileaflet aortic valve. Pulmonic Valve The pulmonic valve is not well visualized. Great Vessels Normal sized aortic root. Pericardium/Pleural No pericardial effusion. MMode/2D Measurements & Calculations LVIDd: 5.1 cm IVSd: 1.4 cm Ao root diam: 3.1 cm LVIDs: 3.3 cm LVPWd: 1.6 cm LA dimension: 4.6 cm RVDd: 3.2 cm FS: 35.6 % LAV(MOD-bp): 79.3 ml LVAd ap4: 30.7 cm2 LVAd ap2: 30.9 cm2 LAV(MOD-bp) Indexed: 37.6 ml/m2 LVLd ap4: 8.3 cm LVLd ap2: 8.7 cm LAV(MOD-sp2): 83.3 ml EDV(MOD-sp4): 92.1 ml EDV(MOD-sp2): 95.8 ml LAV(MOD-sp4): 70.4 ml EDV(sp4-el): 97.0 ml EDV(sp2-el): 93.3 ml LVAs ap4: 16.2 cm2 LVAs ap2: 15.8 cm2 LVLs ap4: 6.7 cm LVLs ap2: 7.1 cm ESV(MOD-sp4): 33.9 ml ESV(MOD-sp2): 32.1 ml ESV(sp4-el): 32.9 ml ESV(sp2-el): 30.1 ml EF(MOD-sp4): 63.2 % EF(MOD-sp2): 66.5 % EF(sp4-el): 66.1 % SV(MOD-sp4): 58.2 ml SV(MOD-sp2): 63.7 ml SV(sp4-el): 64.1 ml LA dimension(2D): 4.6 cm LA A4 area: 23.5 cm2 RA A4 area: 19.6 cm2 TAPSE: 2.4 cm Time Measurements MV dec time: 0.19 sec Doppler Measurements & Calculations MV E max tato: 109.2 cm/sec Lat Peak E' Tato: 7.9 cm/sec Med Peak E' Tato: 8.2 cm/sec MV A max tato: 43.2 cm/sec E/E' lat: 13.8 E/E' med: 13.2 MV E/A: 2.5 MV dec slope: 598.5 cm/sec2 Ao V2 max: 129.8 cm/sec LV V1 max: 95.0 cm/sec Ao max P.7 mmHg LV V1 max P.6 mmHg Ao V2 mean: 91.6 cm/sec LV V1 mean P.1 mmHg Ao mean P.9 mmHg LV V1 mean: 67.2 cm/sec Ao V2 VTI: 27.7 cm LV V1 VTI: 20.5 cm AV (velocity ratio): 0.74 PA V2 max: 71.2 cm/sec PA V2 mean: 48.9 cm/sec PA V2 VTI: 13.4 cm ECHO/Echo Complete Interpretation Summary Severe concentric left ventricular hypertrophy. The left ventricular ejection fraction is 65 %. Stage 3 diastolic dysfunction. The left atrium is moderately enlarged. The right atrium is moderately enlarged. Ordering Physician: Nichelle Madden Referring Physician: Tello Dial Performed By: Cinthya Meza RDCS, RVT
--- NOTE | 2023-04-10 23:01 | PCM.HP.STD ---
HPI - General General Date of Admission: 04/10/23 Date of Service: 04/10/23 Chief Complaint: Hemoptysis/shortness of breath HPI Narrative EDIL ARGUETA, is a 72 M who presented to the emergency department at [facility] on 04/10/2023 with hemoptysis and shortness of breath. Patient states he had symptoms for about a week. He presented to the emergency department earlier this week on 04/07/2023 and was discharged home with instructions to return if you worsen. He followed up with his outpatient primary care physician today and he obtained a D-dimer. D-dimer was noted to be elevated so he was sent to the emergency department to obtain a VQ scan. Patient states that he has had left-sided chest pain that has since resolved. He reports shortness of breath most notably with exertion and coughing that contains intermittently streaked sputum with blood. He denies any recent travel, lower extremity edema, recent abdominal or lower extremity surgeries but does report that he has been more immobile due to bilateral hip pain than he had been previously. On presentation his temperature was 97.6, heart rate was 87, blood pressure was 147/81, respiratory rate was 18 and oxygen saturations were 98% on room air. CBC was overall unimpressive. Coags showed a slightly elevated PTT at 37.3 seconds. Chemistry panel showed chronic elevation of BUN and serum creatinine at 30 and 2.36 respectively and mild hyperglycemia with a glucose of 138 but was otherwise unremarkable. His calcium was 9.1. His troponin was 63. His BNP was slightly elevated at 127.4. EKG did show S1Q3T3 pattern. CTA of the chest was pursued by the emergency department after hydration and did show a saddle PE in the distal superior lobar artery of the right lung as well as a large embolism involving the left proximal basilar part of the inferior lobar artery, posterior and lateral basilar segments. There was an increased right to left ventricular luminal diameter consistent with a right heart strain and a small to moderate size left pleural effusion with the left lower lobe posterior segment atelectasis and pulmonary infarct. There was also a 5 mm right middle lobe nodule noted as well as a calcified granuloma in the left upper lobe and superior segment of the right lower lobe. Given these findings request for admission was made. The patient was started on a heparin drip by the emergency department. [facility] Medical History CKD (chronic kidney disease) Diverticulitis Essential hypertension Gout Hypercholesterolemia Meckel's diverticulum Nephrolithiasis Type 2 diabetes mellitus Home Medications allopurinol 100 mg tablet 100 mg PO DAILY 04/10/23 [History Last Taken Unknown] felodipine 10 mg tablet,extended release 24 hr 10 mg PO DAILY 04/10/23 [History Last Taken Unknown] fluticasone furoate 50 mcg/actuation blister powder for inhalation inhalation 04/10/23 [History Last Taken Unknown] furosemide 20 mg tablet 20 mg PO .EVERY OTHER DAY 04/10/23 [History Last Taken Unknown] multivitamin (Daily Multi-Vitamin tablet) 1 tab PO DAILY 04/10/23 [History Last Taken Unknown] tamsulosin 0.4 mg capsule 0.4 mg PO DAILY 04/10/23 [History Last Taken Unknown] valsartan 80 mg tablet 80 mg PO DAILY 04/10/23 [History Last Taken Unknown] Allergy/AdvReac Type Severity Reaction Status Date / Time aspirin AdvReac Vomiting Verified 04/10/23 16:20 metronidazole [From Flagyl] AdvReac Vomiting Verified 04/10/23 16:20 sulfamethoxazole AdvReac Vomiting Verified 04/10/23 16:20 [From Bactrim] trimethoprim [From Bactrim] AdvReac Vomiting Verified 04/10/23 16:20 no significant family history Surgical History H/O ileostomy Social History (Updated 04/10/23 @ 23:[address] Nichelle Madden DO) household members: spouse housing: house current occupational status: retired Smoking Status: Former smoker alcohol intake: never substance use type: does not use ROS Constitutional Constitutional: Denies anorexia, change in weight, chills, fatigue, fever(s), malaise, night sweats, weakness or other Eyes Eyes: Denies blurry vision, change in eye color, change in vision, discharge from eye(s), double vision, erythema, eye pain, loss of vision or other ENT HEENT: Denies abnormal hearing, dysphagia, ear pain, epistaxis, headache(s), hearing loss, nasal congestion, nasal discharge, post nasal drip, sinus pressure, sore throat or other Cardiovascular Cardiovascular: Reports dyspnea on exertion; Denies chest pain, claudication, edema, lightheadedness, orthopnea, palpitations, paroxysmal nocturnal dyspnea, rapid heart rate, syncope or other Respiratory/Chest Respiratory/Chest: Reports cough, hemoptysis and shortness of breath with exertion; Denies dyspnea, excessive phlegm production, productive cough, shortness of breath at rest, wheezing or other Gastrointestinal Gastrointestinal: Denies abdominal pain, coffee ground emesis, constipation, diarrhea, dyspepsia, hematemesis, hematochezia, loose stools, melena, nausea, vomiting or other Genitourinary Genitourinary: Denies burning urination, difficulty urinating, dysuria, hematuria, nocturia, urinary frequency, urinary hesitancy, urinary incontinence, urinary urgency or other Musculoskeletal Musculoskeletal: Reports back pain and joint pain; Denies arthralgias, joint stiffness, joint swelling, myalgias, neck pain or other Neurologic Neurologic: Reports abnormal gait; Denies abnormal speech, confusion, disequilibrium, dizziness, focal weakness, headache(s), numbness, paresthesias, seizure-like activity, seizures, syncope, tingling, tremor(s) or other Psychiatric Psychiatric: Denies anxiety, depression, homicidal ideation, suicidal ideation or other Endocrine Endocrinology: Denies change in body appearance, cold intolerance, excessive sweating, heat intolerance, polydipsia, polyuria or other Hematologic/Lymphatic Hematologic/Lymphatic: Denies anemia, easy bleeding, easy bruising, lymphadenopathy or other Allergic/Immunologic Allergic/Immunologic: Denies rhinitis, hives, eczemia, asthma or other Vital Signs Vital Signs Vital Signs: 04/10/23 16:20 04/10/23 16:47 04/10/23 18:18 Temperature 97.6 F L 98.1 F Temperature Source Temporal Temporal Pulse Rate 87 69 Respiratory Rate 18 25 H Respiratory Effort Normal Respiratory Pattern Normal Blood Pressure 147/81 H 138/74 H Blood Pressure Mean 103 95 Pulse Ox 98 97 Oxygen Delivery Method Room Air Room Air 04/10/23 19:23 04/10/23 19:30 04/10/23 19:40 Temperature Temperature Source Pulse Rate 67 68 68 Respiratory Rate 25 H 24 H 25 H Respiratory Effort Respiratory Pattern Blood Pressure 141/79 H Blood Pressure Mean 98 Pulse Ox 97 96 97 Oxygen Delivery Method 04/10/23 19:45 04/10/23 19:50 04/10/23 20:00 Temperature Temperature Source Pulse Rate 68 71 73 Respiratory Rate 20 H 21 H 20 H Respiratory Effort Respiratory Pattern Blood Pressure 134/82 H 135/79 H Blood Pressure Mean 98 96 Pulse Ox 95 95 96 Oxygen Delivery Method 04/10/23 20:10 04/10/23 20:15 04/10/23 20:20 Temperature Temperature Source Pulse Rate 70 66 68 Respiratory Rate 20 H 25 H 24 H Respiratory Effort Respiratory Pattern Blood Pressure 142/83 H Blood Pressure Mean 101 Pulse Ox 97 95 96 Oxygen Delivery Method Room Air 04/10/23 20:30 04/10/23 20:40 04/10/23 20:45 Temperature Temperature Source Pulse Rate 72 71 Respiratory Rate 18 23 H Respiratory Effort Respiratory Pattern Blood Pressure 145/89 H 170/79 H Blood Pressure Mean 105 103 Pulse Ox 97 96 Oxygen Delivery Method 04/10/23 20:50 04/10/23 21:00 04/10/23 21:10 Temperature Temperature Source Pulse Rate 71 70 72 Respiratory Rate 18 14 23 H Respiratory Effort Respiratory Pattern Blood Pressure 141/80 H Blood Pressure Mean 97 Pulse Ox 98 98 Oxygen Delivery Method 04/10/23 21:15 04/10/23 21:20 04/10/23 21:30 Temperature Temperature Source Pulse Rate 70 71 Respiratory Rate 22 H 16 Respiratory Effort Respiratory Pattern Blood Pressure 141/82 H 143/87 H Blood Pressure Mean 99 104 Pulse Ox 98 98 Oxygen Delivery Method 04/10/23 21:30 04/10/23 21:42 04/10/23 21:45 Temperature Temperature Source Pulse Rate Respiratory Rate 18 21 H Respiratory Effort Respiratory Pattern Blood Pressure 143/87 H 141/81 H Blood Pressure Mean 104 98 Pulse Ox 96 98 98 Oxygen Delivery Method 04/10/23 21:50 04/10/23 22:00 Temperature Temperature Source Pulse Rate 86 Respiratory Rate 16 Respiratory Effort Respiratory Pattern Blood Pressure 140/79 H Blood Pressure Mean 96 Pulse Ox 96 97 Oxygen Delivery Method Room Air Weight Weight: 95.254 kg Body Mass Index (BMI) 31.0 Physical Exam Const alert, oriented x3, no apparent distress, healthy appearing and well nourished Constitutional Narrative: Very pleasant, older, white male, sitting up in bed, appears comfortable and nontoxic, at bedside, patient on room air with no respiratory issues General Appearance: cooperative HEENT normocephalic, head/scalp atraumatic, hearing grossly normal bilaterally and moist oral mucous membranes HEENT Narrative: Mallampati 3, dentition is fair for age, no thrush, no significant hearing impairment Eyes PERRL, EOMs intact bilaterally and conjunctivae normal Eyes Narrative: No scleral icterus Neck no lymphadenopathy and supple Neck Narrative: Trachea midline, no thyroid enlargement Resp normal respiratory effort, no retractions, no use of accessory muscles and clear to auscultation bilaterally Auscultation: Negative for rales, rhonchi or wheezes Cardio regular rate, regular rhythm, S1 normal heart sound, S2 normal heart sound, no murmurs, no rub, no gallops and no clicks GI normal to inspection, nondistended, normoactive bowel sounds, soft to palpation and non-tender Extremity no clubbing, cyanosis or edema Extremity Narrative: 2+ pedal pulses Neuro oriented x3, CN's II-XII intact bilaterally and moves all extremities Speech: speech normal Psych affect normal Psych Narrative: Lg pleasant, eye contact is good, patient interacts normally Results Lab / Micro Data 04/10/23 17:12 04/10/23 17:12 Labs: Laboratory Results - last 24 hr 04/10/23 17:12: WBC 8.5, RBC 4.40 L, Hgb 12.8 L, Hct 39.0 L, MCV 88.6, MCH 29.1, MCHC 32.8, RDW Std Deviation 42.7, RDW Coeff of Manuel 13.2, Plt Count 273, MPV 9.1, Immature Gran % (Auto) 1.200 H, Neut % (Auto) 68.9, Lymph % (Auto) 16.4 L, Noble % (Auto) 7.9, Eos % (Auto) 4.9, Baso % (Auto) 0.7, Absolute Neuts (auto) 5.9, Absolute Lymphs (auto) 1.40, Nucleated RBC % 0, Sodium 140, Potassium 3.9, Chloride 109 H, Carbon Dioxide 27.0, Anion Gap 4 L, BUN 30 H, Creatinine 2.36 H, Estim Creat Clear Calc 27.46, Est GFR (MDRD) Af Amer 35 L, Est GFR (MDRD) Non-Af 29 L, BUN/Creatinine Ratio 12.7, Glucose 138 H, Calcium 9.1, Troponin I High Sens 63, B-Natriuretic Peptide 127.4 H Micro: Microbiology 04/10/23 17:14 Nasal Secretion SARS-CoV-2 & FLU Antigen (Rapid) - Final Radiology Impression Chest CTA 04/10/23 20:37 IMPRESSION: Exam positive for pulmonary emboli right and left lung as above. Likely pulmonary infarct left lower lobe with associated left pleural effusion. Evidence of right heart strain. Moderate coronary artery calcifications. 5 mm noncalcified and calcified granulomas as above. No follow-up imaging indicated based on flexion Society guidelines. N.B. : The above Results were Read Back by Brendon Parisi DO to Stone Borja DO, and understanding confirmed on 04/10/2023 22:53:18 (ET). Electronically Signed: Brendon Parisi DO at 22:59 EDT , Assessment & Plan Assessment/Plan (1) Cough with hemoptysis: (2) Shortness of breath: (3) Pulmonary embolus: (4) Pleural effusion, left: (5) Pulmonary infarct: (6) Pulmonary nodule: (7) Saddle embolus of pulmonary artery: (8) Hypercalcemia: (9) Hyperparathyroidism: PLAN: Plan Saddle embolus with pulmonary infarct and shortness of breath -Patient is not hypoxic and stable on room air -No tachycardia no tach -CTA shows pulmonary emboli on the right and left lung with saddle embolus in the distal superior lobar right pulmonary artery and a large embolism that involves the left proximal basilar part of the inferior lobar artery, increased rate to left ventricular luminary diameter consistent with RV strain and small to moderate left pleural effusion with probable pulmonary infarct on the left -We will check echocardiogram -Start heparin drip -Patient with CKD but should be able to transition to Eliquis versus Coumadin -If patient remains clinically stable he will likely be able to discharge tomorrow after echocardiogram -We will likely need pulmonary medicine follow-up after discharge -As needed Tylenol for pain due to infarct however patient is not really complaining of much pain at the time of admission Left pleural effusion -Likely related to PE -Does not appear big enough to tap -Should resolve with time as irritation subsides -Recommend outpatient follow-up and imaging after discharge Hemoptysis -Likely related to the above -We will monitor clinically and monitor hemoglobin with initiation of heparin drip -Repeat CBC in a.m. Hypercalcemia/hyperparathyroidism -Patient undergoing outpatient work-up for malignancy -Has follow-up appointment with Dr. Leonard next 04/18/2023 -Recommend patient keep outpatient appointment -Had PET scan done recently at [place] with no increased FGD uptake -Check a.m. CMP Bilateral osteoarthritis of the hips/chronic low back pain -Patient does not take anything chronically -As needed Tylenol Gout -Continue home allopurinol CKD stage IIIb to stage IV -Baseline serum creatinine appears to be between 2.0 and 2.5 -Serum creatinine on presentation was 2.36 -Patient was given IV contrast with precontrast hydration -Will hold home valsartan and Lasix for now with contrast being given -Monitor clinically -Repeat BMP in a.m. -Continued outpatient follow-up BPH -Continue home Flomax Hypertension -Hold home valsartan -Hold home Lasix -Continue home felodipine -As needed hydralazine for systolic pressure greater than 160 DM-2 -Diet controlled -Patient is not on any medication at baseline -Continue carb controlled diet -SSI -Accu-Cheks as blood sugars may be elevated with acute PE due to stress response History of Meckel's diverticulum -Status post resection and ileostomy -No current issues History of diverticulitis/diverticulosis -No current issues Obesity -BMI 31.0 -Recommend weight loss -Complicates treatment, prognosis, outcomes History of tobacco abuse -Remote -Continued cessation recommended DVT prophylaxis -Full anticoagulation with heparin for now CODE STATUS DNR CCA with no intubation as verified on admission with at the bedside Charges/Coding Visit Charges Inpatient E&M: 15275 Init Hosp L2
[2023-04-10] MEDS: HEPARIN/D5w 25,000 UNITS 25,000 UNITS/250 ML IV.SOLN. 10 UNITS CONT INF (23:10)
[2023-04-10 23:13] LABS: Prothrombin Time (Protime)PT. 13.6 SECONDS (11.7-14.9)
[2023-04-10 23:14] LABS: Partial Thromboplast Time 37.3 Seconds (24.1-36.2)
[2023-04-11 00:06] VITALS: BMI 31.0
[2023-04-11] MEDS: Tamsulosin HCl 0.4 MG Capsule PO (01:14)
[2023-04-11] MEDS: DiphenhydrAMINE 25 MG Capsule PO (01:14)
[2023-04-11 01:40] LABS: Bedside Glucose 219 mg/dL (74-106)
[2023-04-11 05:25] LABS: Absolute Lymphocyte Count 1.58 X10^3/uL (0.83-4.51); Absolute Neutrophil Count 5.4 X10^3/uL (2.0-7.7); Basophil# 0.07 X10^3/uL; Basophil% 0.9 % (0-1); Eosinophil# 0.36 X10^3/uL; Eosinophils% 4.4 % (0-5); Hematocrit 35.7 % (40-54); Hemoglobin 11.7 g/dL (13.0-16.5); Lymphocyte # 1.58 X10^3/ul (0.83-4.51); Lymphocyte % 19.2 % (19-41); Mean Corp Hgb Conc 32.8 g/dL (32-36); Mean Corpuscular Hgb 29.3 pg (27.0-32.0); Mean Corpuscular Volume 89.3 fL (80-94); Monocyte# 0.77 X10^3/uL; Monocyte% 9.4 % (0-10); NRBC Flagged by Analyzer 0 % (0-5); Neutrophil # 5.35 X10^3/uL (2.7-7.7); Platelet Count 257 K/mm3 (150-450); RBC Distribution Width CV 13.2 % (11.6-14.6); White Blood Count 8.2 K/mm3 (4.4-11.0)
[2023-04-11 05:33] VITALS: BP 129/66; PULSE 62; RESP 18; TEMP 36.8; O2SAT 97
[2023-04-11 05:37] LABS: Partial Thromboplast Time 37.8 Seconds (24.1-36.2)
[2023-04-11] MEDS: Heparin Injection (Vial) 5,000 UNIT/ML VIAL IV (05:42)
[2023-04-11 05:52] LABS: ALB/GLOB Ratio 0.7 RATIO (0.9-2.4); AST(SGOT) 21 U/L (15-37); Alanine Aminotransfer ALT/SGPT 68 U/L (16-61); Albumin, Serum 2.6 g/dL (3.2-5.0); Alkaline Phosphatase 242 U/L (45-117); Anion Gap 4 (5-15); BUN 27 mg/dL (7-18); BUN/Creat Ratio 13.1 RATIO (10-20); Calcium,Total 8.7 mg/dL (8.5-10.1); Chloride 111 mmol/L (98-107); Creatinine, Serum 2.06 mg/dL (0.70-1.30); EST Glomerular Filtration Rate 34 mL/min (>60); Est Glom Filt Rate - Afr Amer 41 mL/min (>60); Estimated Creatinine Clearance 31.46 ml/min; Globulin 3.7 g/dL (2.2-4.2); Glucose 165 mg/dL (74-106); Magnesium 2.1 mg/dL (1.6-2.6); Phosphorus 3.2 mg/dL (2.5-4.9); Potassium 4.1 mmol/L (3.5-5.1); Protein, Total 6.3 g/dL (6.4-8.2); Sodium Level 141 mmol/L (136-145)
[2023-04-11 06:55] LABS: Bedside Glucose 143 mg/dL (74-106)
--- NOTE | 2023-04-11 07:23 | PCM.PN.HOSP ---
Reason for Visit Reason for Visit: Diagnoses Hyperparathyroidism, unspecified (04/10/23) Hypercalcemia (04/10/23) Saddle embolus of pulmonary artery without acute cor pulmonale (04/10/23) Other pulmonary embolism without acute cor pulmonale (04/10/23) Pleural effusion, not elsewhere classified (04/10/23) Hemoptysis (04/10/23) Shortness of breath (04/10/23) Solitary pulmonary nodule (04/10/23) Subjective Subjective Patient denies any acute events overnight per self and per nursing report. He denies any significant chest discomfort or worsening dyspnea. He has remained on room air and even reports no issues with activity. Discussed his current status and plan of care which included transition to oral NOAC to which she is amenable as long as affordable. Discussed that given his underlying suspected malignancy work-up and presentation with a saddle pulmonary embolus this would be a lifelong anticoagulant plan of care. Patient denies fevers, chills, nausea, emesis, abdominal pain, chest pain. Objective Data Objective Data Vital Signs: Vital Signs Temp Pulse Resp BP Pulse Ox O2 Del Method 98.2 F 62 18 129/66 H 97 Room Air 04/11/23 05:33 04/11/23 05:33 04/11/23 05:33 04/11/23 05:33 04/11/23 05:33 04/11/23 05:37 Oxygen Delivery Method Room Air Weight: 210 lb 1.608 oz Body Mass Index (BMI) 31.0 Intake & Output: Intake and Output for Last 24 Hours 04/09/23 04/10/23 04/11/23 23:59 23:59 23:59 Intake Total 1000 / 1000 65.5 / 65.5 Output Total 500 / 500 Balance 1000 / 720 -434.5 / -434.5 Lab / Micro Data 04/11/23 05:07 04/11/23 05:07 Labs: Laboratory Results - last 24 hr 04/10/23 17:12: WBC 8.5, RBC 4.40 L, Hgb 12.8 L, Hct 39.0 L, MCV 88.6, MCH 29.1, MCHC 32.8, RDW Std Deviation 42.7, RDW Coeff of Manuel 13.2, Plt Count 273, MPV 9.1, Immature Gran % (Auto) 1.200 H, Neut % (Auto) 68.9, Lymph % (Auto) 16.4 L, Rogers % (Auto) 7.9, Eos % (Auto) 4.9, Baso % (Auto) 0.7, Absolute Neuts (auto) 5.9, Absolute Lymphs (auto) 1.40, Nucleated RBC % 0, Sodium 140, Potassium 3.9, Chloride 109 H, Carbon Dioxide 27.0, Anion Gap 4 L, BUN 30 H, Creatinine 2.36 H, Estim Creat Clear Calc 27.46, Est GFR (MDRD) Af Amer 35 L, Est GFR (MDRD) Non-Af 29 L, BUN/Creatinine Ratio 12.7, Glucose 138 H, Calcium 9.1, Troponin I High Sens 63, B-Natriuretic Peptide 127.4 H 04/10/23 22:57: PT 13.6, INR 1.0, APTT 37.3 H 04/11/23 01:21: POC Glucose 219 H 04/11/23 05:07: WBC 8.2, RBC 4.00 L, Hgb 11.7 L, Hct 35.7 L, MCV 89.3, MCH 29.3, MCHC 32.8, RDW Std Deviation 43.0, RDW Coeff of Manuel 13.2, Plt Count 257, MPV 9.0, Immature Gran % (Auto) 1.100 H, Neut % (Auto) 65.0, Lymph % (Auto) 19.2, Rogers % (Auto) 9.4, Eos % (Auto) 4.4, Baso % (Auto) 0.9, Absolute Neuts (auto) 5.4, Absolute Lymphs (auto) 1.58, Nucleated RBC % 0, APTT 37.8 H, Sodium 141, Potassium 4.1, Chloride 111 H, Carbon Dioxide 26.0, Anion Gap 4 L, BUN 27 H, Creatinine 2.06 H, Estim Creat Clear Calc 31.46, Est GFR (MDRD) Af Amer 41 L, Est GFR (MDRD) Non-Af 34 L, BUN/Creatinine Ratio 13.1, Glucose 165 H, Calcium 8.7, Phosphorus 3.2, Magnesium 2.1, Total Bilirubin 0.30, AST 21, ALT 68 H, Alkaline Phosphatase 242 H, Total Protein 6.3 L, Albumin 2.6 L, Globulin 3.7, Albumin/Globulin Ratio 0.7 L 04/11/23 06:36: POC Glucose 143 H Micro: Microbiology 04/10/23 17:14 Nasal Secretion SARS-CoV-2 & FLU Antigen (Rapid) - Final Radiography Diagnostic Testing: Radiology Impression Chest CTA 04/10/23 20:37 IMPRESSION: Exam positive for pulmonary emboli right and left lung as above. Likely pulmonary infarct left lower lobe with associated left pleural effusion. Evidence of right heart strain. Moderate coronary artery calcifications. 5 mm noncalcified and calcified granulomas as above. No follow-up imaging indicated based on flexion Society guidelines. N.B. : The above Results were Read Back by Brendon Parisi DO to Stone Borja DO, and understanding confirmed on 04/10/2023 22:53:18 (ET). Electronically Signed: Brendon Parisi DO at 22:59 EDT , ADDENDUM: 04/10/23 2305 IMPRESSION: Exam positive for pulmonary emboli right and left lung as above. Likely pulmonary infarct left lower lobe with associated left pleural effusion. Evidence of right heart strain. Moderate coronary artery calcifications. 5 mm noncalcified and calcified granulomas as above. No follow-up imaging indicated based on flexion Society guidelines. N.B. : The above Results were Read Back by Brendon Parisi DO to Stone Borja DO, and understanding confirmed on 04/10/2023 22:53:18 (ET). Electronically Signed: Brendon Parisi DO at 22:59 EDT , Physical Exam Narrative Physical Examination: General: Awake, alert, oriented x 3 and cooperative, seated upright in the PCU bed, mildly fatigued but otherwise no acute distress, no dyspnea complaints currently. Skin: Normal color, normal turgor, no icterus, no cyanosis. HEENT: AT/NC, EOMI, PERRLA, MMM. Lungs: Mildly diminished, greater bases, proper effort, no rales, ronchi or wheezing. Heart: Regular rate and rhythm; no gallop, rub audible. Abdomen: Soft, obese, NTTP, ND, normal BS. Extremities: No cyanosis, clubbing, or edema, no marked discomfort with palpation of his calves bilaterally. Neurological: Patient awake, alert, oriented as noted, cognitive function intact; pupils equally reactive to light and accommodation, cranial nerves II-XII grossly normal, moving all 4 extremities, no focal deficits, strength mildly globally decreased. Psychiatric: Affect appears mildly fatigued otherwise normal, no acute evidence of depressive or anxiety feelings. Assessment & Plan Assessment/Plan (1) Saddle embolus of pulmonary artery: PLAN: Plan The patient is a 72 y/o M w/ PMHx: Diabetes mellitus type II, HLD, HTN, Gout, BPH, Former tobacco use, Hx Meckel's diverticulum s/p resection/ileostomy, CKD stage III-IV, recent outpatient malignancy work-up with recent diagnosis of hypercalcemia and hyperparathyroidism with upcoming follow-up with oncology 04/18/2023 who presents to the [facility] ED on 04/10/23 with history of hemoptysis and dyspnea starting earlier in the week. #1. Dyspnea, hemoptysis secondary to Pulmonary Embolism with saddle embolism and suspected likely pulmonary infarct left lower lobe with associated left pleural effusion with evidence of right heart strain: EKG without acute findings, CXR no acute process, D-dimer elevated, CTPA with pulmonary emboli right and left with a likely pulmonary infarct in the left lower lobe associate with left pleural effusion with evidence of right heart strain, BNP 127.4, troponin 63 with unfortunately hypercoagulable state given suspected underlying cancer with ongoing outpatient malignancy evaluation, ECHO obtained w/ severe concentric LVH, EF 65%, stage III diastolic dysfunction, moderately enlarged LA and RA. Admitted to PCU, continued to remain on room air despite saddle embolus presentation, maintained on a heparin drip with CM/SW assessment for transition to eliquis and it was noted to be $25 copay. Will transition now to eliquis. Given ECHO findings will need to be monitored outpatient and would have low threshold to have outpatient Cardiology evaluation. Obtained oxygenation ambulatory trial and patient maintained 98% on room air at rest and 97% with activity with no oxygen needs and no concern for significant tachycardia or concerning vitals during the evaluation. Given patient is extremely clinically stable and oxygenation is appropriate once patient has been initiated on anticoagulant oral therapy will plan to discharge to home today per discussion with patient. #2. Hypercalcemia/hyperparathyroidism with outpatient ongoing malignancy evaluation: Patient with recent evaluations for hypercalcemia and hyperparathyroidism with upcoming visit with [facility] oncology Dr. Leonard 04/18/2023 with recent PET scan reportedly at midline with no increased uptake, encourage continued outpatient follow-up and evaluation, 04/11/2023 CMP with calcium 8.7. #3. Chronic Kidney Disease Stage III unclear subtype-IV: Admission BUN/Cr 30/2.36, baseline renal function 2-2.5, patient home valsartan and Lasix temporarily held upon admission given contrast usage, 04/11/2023 BUN/Cr 27/2.06, will continue to trend. #4. Hypertension: As noted temporally held valsartan and Lasix given mildly increased renal function above baseline, add back once appropriate, continue patient home felodipine regimen, as needed hydralazine. #5. Diabetes mellitus type II, diet controlled: Patient is not on any medications at baseline, diet controlled as noted, maintain on ADA diet, accu checks w/ ISS. #6. History Meckel's diverticulum: Status post resection and ileostomy. #7. Obesity: Weight loss and lifestyle changes encouraged. #8. Former tobacco use: Encourage continued tobacco cessation. #9. BPH: We will continue patient on Flomax regimen. #10. Gout: We will continue patient home allopurinol regimen. #11. DVT prophylaxis: Heparin drip with planned transition given on room air to Eliquis once verified cost the patient with case management/social work. #12. CODE STATUS: DNR CCA, no intubation. Charges/Coding Visit Charges Inpatient E&M: 17699 Init Hosp L2
[2023-04-11 07:39] VITALS: O2SAT 95
[2023-04-11 10:04] VITALS: BP 133/78; PULSE 70; RESP 16; TEMP 36.7; O2SAT 98
[2023-04-11] MEDS: amLODIPine 10 MG Tablet PO (10:07)
[2023-04-11] MEDS: Allopurinol 100 MG Tablet PO (10:07)
[2023-04-11 10:09] VITALS: O2SAT 97; O2SAT 98
--- NOTE | 2023-04-11 11:52 | CHAPLAIN ---
Type of Pastoral Visit _x__ Initial Visit ___ Follow-up Visit ___ On-call Visit ___ General Patient Visit ___ Spiritual Assessment ___ Family Conference ___ Bereavement ___ Rapid Response ___ Code Blue ___ Other (describe below) Pastoral Care Referral From _x__ Patient ___ Family ___ Nurse ___ Physician ___ Textile Finisher ___ Truck Chauffeur ___ Other (describe below) Sacrament/Intervention _x__ Active listening ___ Anointing ___ Anabaptism ___ Bereavement ___ Communion _x__ Cira exploration ___ ___ Life review ___ Prayer ___ Reconciliation ___ Sacrament of Sick ___ Supportive presence ___ Wedding ___ Other (describe below) Pastoral Comments patient and spouse together in the room and waiting on further instructions about health; pt anticipates going home today and feeling better today; both indicate that cira is important to them in handling the circumstances of life; both are currently out of fellowship with any particular jew and watch adventism services on TV; pt states that his emotional support comes from his ; no other needs are revealed at this time
[2023-04-11 11:59] LABS: Partial Thromboplast Time 41.5 Seconds (24.1-36.2)
[2023-04-11] MEDS: Insulin Lispro 100 UNIT/ML INSULN.PEN SC (12:35)
--- NOTE | 2023-04-11 13:17 | PCM.DC.SUM ---
Providers Date of Admission: 04/10/23 Date of Discharge: 04/11/23 Primary Care Physician: Dr. Peyman Dial MD Reason For Visit: PE/RV STRAIN Diagnosis Discharge Diagnosis (1) Saddle embolus of pulmonary artery: Status: Acute Code(s): I26.92 - Saddle embolus of pulmonary artery without acute cor pulmonale Plan: Discharge diagnoses: #1. Dyspnea, hemoptysis secondary to Pulmonary Embolism with saddle embolism and suspected likely pulmonary infarct left lower lobe with associated left pleural effusion with evidence of right heart strain w/ ECHO noted severe concentric LVH and stage III diastolic dysfunction #2. Hypercalcemia/hyperparathyroidism with outpatient ongoing malignancy evaluation #3. Chronic Kidney Disease Stage III unclear subtype-IV #4. Hypertension #5. Diabetes mellitus type II, diet controlled #6. History Meckel's diverticulum #7. Obesity #8. Former tobacco use #9. BPH #10. Gout #11. CODE STATUS: DNR-CCA, no intubation status. Medications at Discharge Home Medications allopurinol 100 mg tablet 100 mg PO DAILY 04/10/23 felodipine 10 mg tablet,extended release 24 hr 10 mg PO DAILY 04/10/23 furosemide 20 mg tablet 20 mg PO .EVERY OTHER DAY 04/10/23 multivitamin (Daily Multi-Vitamin tablet) 1 tab PO DAILY 04/10/23 tamsulosin 0.4 mg capsule 0.4 mg PO DAILY 04/10/23 valsartan 80 mg tablet 80 mg PO DAILY 04/10/23 apixaban 5 mg (74 tabs) tablets in a dose pack (Eliquis DVT-PE Treat 30D Start) 5 mg PO BID #74 tabs 04/11/23 diphenhydramine HCl 25 mg capsule (Allergy Relief (diphenhydramine)) 25 mg PO QHS 04/11/23 Hospital Course Procedures 2-D Echocardiogram and EKG Summary of Care Provided Minutes Spent on Discharge: 35 Hospital Course: The patient is a 72 y/o M w/ PMHx: Diabetes mellitus type II, HLD, HTN, Gout, BPH, Former tobacco use, Hx Meckel's diverticulum s/p resection/ileostomy, CKD stage III-IV, recent outpatient malignancy work-up with recent diagnosis of hypercalcemia and hyperparathyroidism with upcoming follow-up with oncology 04/18/2023 who presented to the [facility] ED on 04/10/23 with history of hemoptysis and dyspnea starting earlier in the week. EKG without acute findings, CXR no acute process, D-dimer elevated, CTPA with pulmonary emboli right and left with a likely pulmonary infarct in the left lower lobe associate with left pleural effusion with evidence of right heart strain, BNP 127.4, troponin 63 with unfortunately hypercoagulable state given suspected underlying cancer with ongoing outpatient malignancy evaluation, ECHO obtained w/ severe concentric LVH, EF 65%, stage III diastolic dysfunction, moderately enlarged LA and RA. Admitted to PCU, continued to remain on room air despite saddle embolus presentation, maintained on a heparin drip with CM/SW assessment for transition to eliquis and it was noted to be $25 copay. 04/11/23 transitioned to eliquis. Given ECHO findings will need to be monitored outpatient and would have low threshold to have outpatient Cardiology evaluation. Obtained oxygenation ambulatory trial and patient maintained 98% on room air at rest and 97% with activity with no oxygen needs and no concern for significant tachycardia or concerning vitals during the evaluation. Admission BUN/Cr 30/2.36, baseline renal function 2-2.5, patient home valsartan and Lasix temporarily held upon admission given contrast usage, 04/11/2023 BUN/Cr 27/2.06. Patient with recent evaluations for hypercalcemia and hyperparathyroidism with upcoming visit with [facility] oncology Dr. Leonard 04/18/2023 with recent PET scan reportedly at midline with no increased uptake, encourage continued outpatient follow-up and evaluation, 04/11/2023 CMP with calcium 8.7. Given patient clinically stable and oxygenation appropriate patient discharged to home in stable condition with early PCP follow-up and continued follow-up with Oncology as previously arranged. Weight / BMI Weight Weight: 210 lb 1.608 oz Body Mass Index (BMI) 31.0 ABG / Lab / Microbiology Data 04/11/23 05:07 04/11/23 05:07 Laboratory: Laboratory Results - last 24 hr 04/10/23 17:12: WBC 8.5, RBC 4.40 L, Hgb 12.8 L, Hct 39.0 L, MCV 88.6, MCH 29.1, MCHC 32.8, RDW Std Deviation 42.7, RDW Coeff of Manuel 13.2, Plt Count 273, MPV 9.1, Immature Gran % (Auto) 1.200 H, Neut % (Auto) 68.9, Lymph % (Auto) 16.4 L, [place] % (Auto) 7.9, Eos % (Auto) 4.9, Baso % (Auto) 0.7, Absolute Neuts (auto) 5.9, Absolute Lymphs (auto) 1.40, Nucleated RBC % 0, Sodium 140, Potassium 3.9, Chloride 109 H, Carbon Dioxide 27.0, Anion Gap 4 L, BUN 30 H, Creatinine 2.36 H, Estim Creat Clear Calc 27.46, Est GFR (MDRD) Af Amer 35 L, Est GFR (MDRD) Non-Af 29 L, BUN/Creatinine Ratio 12.7, Glucose 138 H, Calcium 9.1, Troponin I High Sens 63, B-Natriuretic Peptide 127.4 H 04/10/23 22:57: PT 13.6, INR 1.0, APTT 37.3 H 04/11/23 01:21: POC Glucose 219 H 04/11/23 05:07: WBC 8.2, RBC 4.00 L, Hgb 11.7 L, Hct 35.7 L, MCV 89.3, MCH 29.3, MCHC 32.8, RDW Std Deviation 43.0, RDW Coeff of Manuel 13.2, Plt Count 257, MPV 9.0, Immature Gran % (Auto) 1.100 H, Neut % (Auto) 65.0, Lymph % (Auto) 19.2, [place] % (Auto) 9.4, Eos % (Auto) 4.4, Baso % (Auto) 0.9, Absolute Neuts (auto) 5.4, Absolute Lymphs (auto) 1.58, Nucleated RBC % 0, APTT 37.8 H, Sodium 141, Potassium 4.1, Chloride 111 H, Carbon Dioxide 26.0, Anion Gap 4 L, BUN 27 H, Creatinine 2.06 H, Estim Creat Clear Calc 31.46, Est GFR (MDRD) Af Amer 41 L, Est GFR (MDRD) Non-Af 34 L, BUN/Creatinine Ratio 13.1, Glucose 165 H, Calcium 8.7, Phosphorus 3.2, Magnesium 2.1, Total Bilirubin 0.30, AST 21, ALT 68 H, Alkaline Phosphatase 242 H, Total Protein 6.3 L, Albumin 2.6 L, Globulin 3.7, Albumin/Globulin Ratio 0.7 L 04/11/23 06:36: POC Glucose 143 H 04/11/23 11:46: APTT 41.5 H Microbiology: Microbiology 04/10/23 17:14 Nasal Secretion SARS-CoV-2 & FLU Antigen (Rapid) - Final Radiography Diagnostic Testing: Radiology Impression Chest CTA 04/10/23 20:37 IMPRESSION: Exam positive for pulmonary emboli right and left lung as above. Likely pulmonary infarct left lower lobe with associated left pleural effusion. Evidence of right heart strain. Moderate coronary artery calcifications. 5 mm noncalcified and calcified granulomas as above. No follow-up imaging indicated based on flexion Society guidelines. N.B. : The above Results were Read Back by Brendon Parisi DO to Stone Borja DO, and understanding confirmed on 04/10/2023 22:53:18 (ET). Electronically Signed: Brendon Parisi DO at 22:59 EDT , ADDENDUM: 04/10/23 2305 IMPRESSION: Exam positive for pulmonary emboli right and left lung as above. Likely pulmonary infarct left lower lobe with associated left pleural effusion. Evidence of right heart strain. Moderate coronary artery calcifications. 5 mm noncalcified and calcified granulomas as above. No follow-up imaging indicated based on flexion Society guidelines. N.B. : The above Results were Read Back by Brendon Parisi DO to Stone Borja DO, and understanding confirmed on 04/10/2023 22:53:18 (ET). Electronically Signed: Brendon Parisi DO at 22:59 EDT , Echocardiogram 04/10/23 23:00 Interpretation Summary Severe concentric left ventricular hypertrophy. The left ventricular ejection fraction is 65 %. Stage 3 diastolic dysfunction. The left atrium is moderately enlarged. The right atrium is moderately enlarged. Ordering Physician: Nichelle Madden Referring Physician: Tello Dial Performed By: Cinthya Meza, CONCETTA, RVT D/C Instructions Discharge Diet: Low fat / Low cholesterol May resume sexual activity in: No Restrictions Weight Bearing Status: Weight bearing as tolerated Call your doctor if you observe: Fever of 101 or Higher, Shortness of breath, Dizziness, Chest pain, Increased palpitations (irregular heartbeat) and Uncontrolled pain Meaningful Use Info Meaningful Use Diagnoses (Choose all that apply): VTE VTE Anticoag overlap given w/in hospital stay or rx'd at dc?: No Pt receive overlap for 5 days?: No Reason overlap not ordered, prescribed, or given for 5 days: Treatment Not Indicated (Heparin drip-->oral eliquis.) Discharge Plan Admission Admit Date/Time: 04/10/23 22:57 Primary Reason for Your Visit: Saddle PE with evidence right heart strain, possible pulmonary infarct. Attending Provider: Hilda Jones Primary Care Provider: Peyman Dial Consulting Providers: Nichelle Madden Instructions Patient Instructions: DVT/PE Discharge instruction sheet, Understanding Pulmonary Embolism Additional Instructions / Restrictions: MEDICATION CLARIFICATION: Discussed with your pharmacist and the eliquis starter pack will be 10 mg twice daily x 7 days then transition to 5 mg twice daily. The copay is only $25 but if there are any issues with payment or the hector changes immediately notify your primary care or Dr. Leonard Oncologist as it is vital that you continue this medication without missing any doses. IF YOU BECOME SHORT OF BREATH OR HAVE CHEST PAIN given your notable clot burden please immediately seek medical evaluation. As part of the pulmonary embolism work-up, you had an echocardiogram obtained (Severe concentric LVH, EF 65%, stage III diastolic dysfunction, moderately enlarged LA and RA). Please follow-up outpatient with Cardiology per your primary care discretion given these findings. Discharge Orders/Prescriptions Prescriptions: New Eliquis DVT-PE Treat 30D Start 5 mg (74 tabs) tablets,dose pack 5 mg PO BID Qty: 74 0RF Continued allopurinol 100 mg tablet 100 mg PO DAILY felodipine 10 mg tablet extended release 24 hr 10 mg PO DAILY furosemide 20 mg tablet 20 mg PO .EVERY OTHER DAY Patient Comments: TAKE 1 TABLET BY MOUTH ONCE DAILY valsartan 80 mg tablet 80 mg PO DAILY tamsulosin 0.4 mg capsule 0.4 mg PO DAILY multivitamin [Daily Multi-Vitamin] Tablet 1 tab PO DAILY diphenhydramine HCl [Allergy Relief(diphenhydramin)] 25 mg capsule 25 mg PO QHS Referrals / Follow Up: Peyman Dial MD [Primary Care Provider] - (Follow-up within preferrably 2-3 days to review admission and have recheck oxygenation assessment.) Patel Leonard DO [Med Staff - Active Staff] - (Please follow-up as already previously arranged.) Disposition Disposition (needs filled in before D/C Order can be placed): Home, Self Care Charges/Coding Visit Charges Inpatient E&M: 98674 Disch Hosp >30min
[2023-04-11 13:26] LABS: Bedside Glucose 207 mg/dL (74-106)
[2023-04-11] MEDS: APIXABAN 5 MG TABLET 10 MG PO (13:38)
--- NOTE | 2023-04-11 13:44 | PHA.DC_ITS ---
Pharmacy [facility] Pharm[facility] Service has performed discharge medication reconciliation and counseling for this patient. 1. APIXABAN 10MG PO BID X 7 DAYS THEN 5MG BID THEREAFTER The patient's discharge medication list was reviewed for discrepancies and discrepancies were resolved. The patient was counseled on the following discharge medications and changes in medications for homegoing were reviewed. The Reason for Use, instructions for use, and potential side effects were reviewed for all new medications. The patient's questions regarding all of their medications were answered. The patient was able to verbally demonstrate an understanding of their discharge medications. Patient counseled by pharmacy operations coordinatorCarmen. Medications at Discharge Home Medications allopurinol 100 mg tablet 100 mg PO DAILY 04/10/23 felodipine 10 mg tablet,extended release 24 hr 10 mg PO DAILY 04/10/23 furosemide 20 mg tablet 20 mg PO .EVERY OTHER DAY 04/10/23 multivitamin (Daily Multi-Vitamin tablet) 1 tab PO DAILY 04/10/23 tamsulosin 0.4 mg capsule 0.4 mg PO DAILY 04/10/23 valsartan 80 mg tablet 80 mg PO DAILY 04/10/23 apixaban 5 mg (74 tabs) tablets in a dose pack (Eliquis DVT-PE Treat 30D Start) 5 mg PO BID #74 tabs 04/11/23 diphenhydramine HCl 25 mg capsule (Allergy Relief (diphenhydramine)) 25 mg PO QHS 04/11/23
--- NOTE | 2023-04-11 14:40 | CASEMGMT ---
Patient is discharging on Eliquis. CM called [facility] to verify copay, $25. RN CM in to discuss needs at discharge. Patient does not qualify for home oxygen. Patient denies needs at this time. [facility]Y [facility] updated regarding copay of Eliquis and 30 Free Trial Card provided to patient. Patient and deny any further questions or concerns at this time.
[2023-04-11 15:39] VITALS: BP 123/76; PULSE 69; RESP 16; TEMP 36.5; O2SAT 98
== END 2023-04-11 13:14 | disposition home or self-care (01) ==
LOC: ED 22:59 → PCU 23:03
PROVIDERS: Admitting Provider Internal Medicine; Emergency Provider Emergency Medicine; PCP Family Medicine; Visit Provider Family Medicine
DX: I26.92 Saddle embolus of pulmonary artery without acute cor pulmonale (principal); E11.22 Type 2 diabetes mellitus with diabetic chronic kidney disease; E21.3 Hyperparathyroidism, unspecified; N18.30 Chronic kidney disease, stage 3 unspecified; Z68.31 Body mass index [BMI] 31.0-31.9, adult; I25.10 Atherosclerotic heart disease of native coronary artery without angina pectoris; N40.0 Benign prostatic hyperplasia without lower urinary tract symptoms; E66.9 Obesity, unspecified; I12.9 Hypertensive chronic kidney disease with stage 1 through stage 4 chronic kidney disease, or unspecified chronic kidney disease; E83.52 Hypercalcemia; Z87.891 Personal history of nicotine dependence; R91.1 Solitary pulmonary nodule; J90 Pleural effusion, not elsewhere classified; E78.00 Pure hypercholesterolemia, unspecified; M10.9 Gout, unspecified; R07.9 Chest pain, unspecified; R04.2 Hemoptysis; Z79.899 Other long term (current) drug therapy; R06.02 Shortness of breath
CPT/HCPCS: 36415; 71275; 80048; 80053; 82962; 83735; 83880; 84100; 84484; 85025; 85379; 85610; 85730; 87428; 93005; 93306; 94668; 96361; 96365; 96366; 96376; 99284; J7040; Q9967; A4216

== ENCOUNTER → 2023-04-10 | Outpatient (CLI) | payer MEDICARE, OTHER, SELFPAY ==
[2023-04-10 14:04] LABS: D-Dimer Quantitative (DVT/PE) 3.27 FEU/ug/m (0.27-0.49)
== END | disposition home or self-care (01) ==
LOC: LABSPEC 12:43
PROVIDERS: PCP Family Medicine; Referring Provider Family Medicine; Visit Provider Family Medicine
DX: R07.9 Chest pain, unspecified (principal); R04.2 Hemoptysis
CPT/HCPCS: 85379

== ENCOUNTER → 2024-01-16 | Outpatient (CLI) | payer MEDICARE, OTHER, SELFPAY ==
--- NOTE | 2024-01-16 08:40 | ECHOD_ITS ---
Reason For Study: PULMONARY EMBOLISM Procedure This was a 2D Doppler, Color Flow transthoracic echocardiogram. Exam performed in department. Left Ventricle Normal LV size. Mild concentric left ventricular hypertrophy. Left ventricular systolic function is normal. The left ventricular ejection fraction is 65 %. No regional wall motion abnormalities noted. Right Ventricle Normal RV size. Normal systolic function. Atria The left atrium is mildly enlarged. Normal right atrium. Mitral Valve Normal mitral valve. Tricuspid Valve Normal tricuspid valve. Mild (1+) tricuspid valve insufficiency. Pulmonary artery systolic pressure is 28 mmHg. Aortic Valve Normal aortic valve. Trisinus/trileaflet aortic valve. Pulmonic Valve Normal pulmonic valve. Great Vessels Normal aortic root. The pulmonary artery is normal size. Normal inferior vena cava. Pericardium/Pleural No pericardial effusion. MMode/2D Measurements & Calculations LVIDd: 5.3 cm IVSd: 1.3 cm Ao root diam: 3.6 cm LVIDs: 3.4 cm LVPWd: 1.3 cm RVDd: 3.0 cm FS: 36.6 % LAV(MOD-bp): 92.3 ml LVAd ap4: 29.8 cm2 SV(MOD-sp4): 57.6 ml LAV(MOD-bp) Indexed: 42.8 ml/m2 LVLd ap4: 7.8 cm LAV(MOD-sp2): 101.4 ml EDV(MOD-sp4): 92.0 ml LAV(MOD-sp4): 81.1 ml EDV(sp4-el): 96.6 ml LVAs ap4: 16.2 cm2 LVLs ap4: 6.8 cm ESV(MOD-sp4): 34.4 ml ESV(sp4-el): 32.7 ml EF(MOD-sp4): 62.6 % EF(sp4-el): 66.1 % SV(sp4-el): 63.9 ml LA A4 area: 25.0 cm2 LA dimension(2D): 4.5 cm RA A4 area: 17.5 cm2 TAPSE: 1.9 cm Time Measurements MV dec time: 0.17 sec Doppler Measurements & Calculations MV E max tato: 113.6 cm/sec Lat Peak E' Tato: 9.3 cm/sec Med Peak E' Tato: 9.0 cm/sec MV A max tato: 59.9 cm/sec E/E' lat: 12.3 E/E' med: 12.7 MV E/A: 1.9 MV V2 max: 105.6 cm/sec Ao V2 max: 141.4 cm/sec MV max P.5 mmHg MV dec slope: 688.0 cm/sec2 Ao max P.0 mmHg MV V2 mean: 59.7 cm/sec Ao V2 mean: 102.2 cm/sec MV mean P.7 mmHg Ao mean P.5 mmHg MV V2 VTI: 22.0 cm Ao V2 VTI: 26.7 cm AV (velocity ratio): 0.67 LV V1 max: 94.5 cm/sec PA V2 max: 102.1 cm/sec LV V1 max P.6 mmHg PA V2 mean: 77.5 cm/sec PI dec slope: 503.2 cm/sec2 LV V1 mean P.9 mmHg LV V1 mean: 65.3 cm/sec LV V1 VTI: 17.8 cm TR max tato: 240.7 cm/sec TR max P.2 mmHg ECHO/Echo Complete Interpretation Summary Normal LV size. Mild concentric left ventricular hypertrophy. The left ventricular ejection fraction is 65 %. Left ventricular systolic function is normal. The left atrium is mildly enlarged. Pulmonary artery systolic pressure is 28 mmHg. Ordering Physician: Wilbur Barnhart Referring Physician: Tello Dial Performed By: Cinthya Meza, RDCS, RVT
== END | disposition home or self-care (01) ==
LOC: CVS 08:38
PROVIDERS: PCP Family Medicine; Referring Provider Internal Medicine Cardiovascular Disease; Visit Provider Internal Medicine Cardiovascular Disease
DX: I51.7 Cardiomegaly (principal)
CPT/HCPCS: 93306

== ENCOUNTER → 2024-02-13 | Outpatient (CLI) | payer MEDICARE, OTHER, SELFPAY ==
--- NOTE | 2024-02-13 16:49 | STRESSREP ---
Stress Test Report Pharmacologic myocardial perfusion stress test. 73-year-old for preop evaluation Resting EKG demonstrates sinus rhythm with a rate of 86 bpm. Resting blood pressure is 147/84 mmHg. 0.4 mg of regadenoson was infused per usual protocol followed by rapid intravenous saline flush injection. Continuous EKG monitoring was performed. The maximum heart rate was 98 bpm which was 67 %of max impacted heart rate the maximum workload was 1 metabolic equivalent. At rest there were no ST or T wave changes noted to suggest ischemia and at peak infusion nonspecific ST changes were noted which did not meet the criteria for ischemia. No clinical angina is noted. The final blood pressure was 134/70 mmHg. Myocardial perfusion protocol. 14.9 mCi of technetium 99m sestamibi was injected at rest. 0.4 mg of regadenoson was infused per usual protocol. At peak infusion 45 mCi of technetium 99m sestamibi was injected stress images were obtained stress and rest images were reconstructed and compared in the short axis vertical long and horizontal long axis. Gated images were also obtained. Perfusion SPECT analysis: Review of the stress images demonstrate normal uptake of tracer noted in all areas of the myocardium. The resting images similar demonstrated normal uptake of tracer noted in all areas of the myocardium. No areas of reversibility are noted to suggest ischemia and no previous infarct is noted. Gated SPECT analysis: The gated ejection fraction is 55%. Conclusion: Normal pharmacologic myocardial perfusion stress test. Preserved ejection fraction.
== END | disposition home or self-care (01) ==
LOC: CVS 07:24
PROVIDERS: PCP Family Medicine; Referring Provider Physician Assistant Medical; Visit Provider Physician Assistant Medical
DX: Z01.810 Encounter for preprocedural cardiovascular examination (principal); I25.10 Atherosclerotic heart disease of native coronary artery without angina pectoris
CPT/HCPCS: 78452; 93017; A9500; A4216; J2785